=== PATIENT | female | born 1980 | race Caucasian/White ===

== ENCOUNTER → 2017-06-16 08:56 | Outpatient (CLI) | payer BC, OTHER, SELFPAY ==
[2017-06-16 09:52] LABS: Hematocrit 40.2 % (37-47); Hemoglobin 13.6 g/dl (12.0-15.0); Mean Corp Hgb Conc 33.8 g/gl (32-36); Mean Corpuscular Hgb 29.4 pg (27.0-32.0); Mean Platelet Vol. 9.8 fl (6.2-12.0); Platelet Count 284 K/mm3 (150-450); RBC Distribution Width CV 13.6 % (11.6-14.6); RBC Distribution Width SD 42.7 fl (35.1-43.9); Red Blood Count 4.62 M/mm3 (4.2-5.4); Scan Indicated on CBC? Y/N NO; White Blood Count 7.1 K/mm3 (4.4-11.0)
[2017-06-16 10:12] LABS: Estradiol 98.2 pg/mL; Follicle Stimulating Hormone 5.7 mIU/mL; Free T3 2.8 pg/mL (2.18-3.98); T4 Free Direct 1.52 ng/dL (0.76-1.46); Thyroid Stim Hormone (TSH) 2.35 uIU/mL (0.358-3.74)
[2017-06-17 09:14] LABS: DHEA Sulfate 5.3 ug/dL (84.8-378.0)
== END ==
PROVIDERS: Family Provider Nurse Practitioner; PCP Nurse Practitioner; Visit Provider Obstetrics & Gynecology
DX: R10.2 Pelvic and perineal pain (principal)
CPT/HCPCS: 36415; 82627; 82670; 83001; 83002; 84144; 84403; 84439; 84443; 84481; 85027; 82626

== ENCOUNTER → 2017-06-21 12:20 | Outpatient (CLI) | payer BC, SELFPAY ==
--- NOTE | 2017-06-21 12:33 | US_ITS ---
STUDY: ULTRASOUND OF THE FEMALE PELVIS - COMPLETE REASON FOR EXAM: Female, 36 years old. Pelvic pain. LMP: Patient is nursing. TECHNIQUE: Transabdominal and Transvaginal TECHNICAL QUALITY: Adequate. COMPARISON: None. FINDINGS: The uterus is anteverted and is in a midline position. The uterus measures 7.7 cm x 4.3 cm x 3.7 cm. Normal uterine cervix. The endometrium measures 9.0 mm in thickness, and is fluid distended. 2 tiny calcifications are seen along the posterior aspect of the endometrium. There is no demonstrated endometrial mass. There is no demonstrated myometrial mass. I.U.D. - The patient does not have an I.U.D. The right ovary is visualized. The right ovary measures 4.4 cm x 2.9 cm x 2.7 cm. Multiple small follicles are seen within it. There is no visualized right adnexal mass or complex lesion. There is normal arterial and normal venous vascularity. The left ovary is visualized. The left ovary measures 2.9 cm x 2.0 cm x 1.9 cm. There is no left ovarian cyst or ovarian mass. There is no visualized left adnexal mass or complex lesion. There is normal arterial and normal venous vascularity. There is no fluid in the cul-de-sac. The pre void volume of the bladder was 174 ml. Polycystic ovary disease: No. US/Pelvic (Non ) IMPRESSION: Fluid distended endometrium. 2 tiny calcifications are seen along its posterior border. Electronically Signed: Kevin Little MD at 15:48 EDT Tel [phone], Service support ,
--- NOTE | 2017-06-21 12:34 | US_ITS ---
STUDY: ULTRASOUND OF THE FEMALE PELVIS - COMPLETE REASON FOR EXAM: Female, 36 years old. Pelvic pain. LMP: Patient is nursing. TECHNIQUE: Transabdominal and Transvaginal TECHNICAL QUALITY: Adequate. COMPARISON: None. FINDINGS: The uterus is anteverted and is in a midline position. The uterus measures 7.7 cm x 4.3 cm x 3.7 cm. Normal uterine cervix. The endometrium measures 9.0 mm in thickness, and is fluid distended. 2 tiny calcifications are seen along the posterior aspect of the endometrium. There is no demonstrated endometrial mass. There is no demonstrated myometrial mass. I.U.D. - The patient does not have an I.U.D. The right ovary is visualized. The right ovary measures 4.4 cm x 2.9 cm x 2.7 cm. Multiple small follicles are seen within it. There is no visualized right adnexal mass or complex lesion. There is normal arterial and normal venous vascularity. The left ovary is visualized. The left ovary measures 2.9 cm x 2.0 cm x 1.9 cm. There is no left ovarian cyst or ovarian mass. There is no visualized left adnexal mass or complex lesion. There is normal arterial and normal venous vascularity. There is no fluid in the cul-de-sac. The pre void volume of the bladder was 174 ml. Polycystic ovary disease: No. US/Transvaginal Non- IMPRESSION: Fluid distended endometrium. 2 tiny calcifications are seen along its posterior border. Electronically Signed: Kevin Little MD at 15:48 EDT Tel [phone], Service support ,
== END ==
PROVIDERS: Family Provider Family Medicine; PCP Family Medicine; Visit Provider Obstetrics & Gynecology
DX: R10.2 Pelvic and perineal pain (principal)
CPT/HCPCS: 76830; 76856; 93976

== ENCOUNTER 2017-07-19 06:06 | Observation (INO) | payer BC, SELFPAY ==
[2017-07-19] VITALS (12 sets, daily range): BP systolic 88–116; BP diastolic 45–80; PULSE 83–116; RESP 15–20; TEMP 36.4–37.7; O2SAT 95–100; BMI 35.6; BMI 35.7; BMI 35.8
--- NOTE | 2017-07-19 06:12 | EKG12_ITS ---
Test Reason : ABNL Blood Pressure : / mmHG Vent. Rate : 103 BPM Atrial Rate : 103 BPM P-R Int : 118 ms QRS Dur : 092 ms QT Int : 350 ms P-R-T Axes : -04 031 008 degrees QTc Int : 458 ms Sinus tachycardia Otherwise normal ECG Confirmed by HAY ROBERTSON, JADE ([id number]), editor news AMINATA SHEN ([id number]) on 07/22/2017 3:20:12 PM Referred By: HARRIS Confirmed By:JADE GUIDO MD
[2017-07-19] MEDS: Hydrocortisone Sod Succinate 100 MG/2 ML Vial 200 MG IV (06:34)
[2017-07-19] MEDS: 0.9% Normal Saline 1,000 ML 1000 ML IV (06:35)
[2017-07-19] MEDS: Ondansetron 4 MG/2 ML Vial IV (06:35)
[2017-07-19] MEDS: 0.9% Normal Saline 1,000 ML 999 ML IV ×2 (06:45→19:00)
--- NOTE | 2017-07-19 06:52 | ED.DCSUM_ITS ---
- ER Visit Summary Date of Service: 07/19/17 Chief Complaint: Nausea, vomiting, diarrhea History of Present Illness: The patient is a 36 F resents to the emergency department with nausea, vomiting, diarrhea. The patient has a history of congenital adrenal hyperplasia. She is on daily prednisone. She follows with endocrine at [facility] in [facility]. She does have a history of acute adrenal crisis when she had C. difficile in March. She states that this morning, she woke with some cramping abdominal pain. She states that she had loose watery diarrhea. She states it smelled like her C. difficile. She then began to vomit. She was unable to keep her prednisone down. She began to feel increasingly weak and lightheaded. She states this is exactly how her symptoms started before when she was in adrenal insufficiency and addisonian crisis. She has not been on any recent antibiotics. She denies any fever. She denies any recent travel. Physical Examination: Vital signs reviewed General: Well-nourished, well-developed Head: Normocephalic, atraumatic Eyes: Pupils equal and reactive, extraocular muscles intact Neck, supple, no lymphadenopathy Heart: Regular rate and rhythm Respiratory: No distress, clear bilaterally Abdomen: Soft, nontender, nondistended, no peritoneal signs Back: Nontender Extremities: Nontender, no edema, no cords Skin: Normal color no rash Neuro: Alert and oriented, no focal or lateralizing deficits Test Results: [] Emergency Department Course and Treatment: The patient is a history of acute adrenal insufficiency. IV was established. She was given fluids and Cortef. Labs were obtained. The patient will be reevaluated pending completion of workup and final disposition will be made. Treatment Plan: [] Disposition: [] Impression: [] This note was generated with [employer] dictation software. It may contain incorrect words, spelling, and punctuation that were not noted in review of the chart prior to signing ED Disposition - Plan for ED Patient: Chief Complaint: Nausea/Vomiting/Diarrhea Referrals: Mercedes Arreola MD [Primary Care Provider] -
[2017-07-19 06:57] LABS: Absolute Neutrophil Count 9.8 X10^3/uL (2.0-7.7); Basophil# 0.01 X10^3/uL; Basophil% 0.1 % (0-1); Eosinophil# 0.06 X10^3/uL; Eosinophils% 0.5 % (0-5); Hematocrit 42.8 % (37-47); Hemoglobin 14.2 g/dl (12.0-15.0); Lymphocyte % 7.8 % (19-41); Mean Corp Hgb Conc 33.2 g/gl (32-36); Mean Corpuscular Hgb 28.7 pg (27.0-32.0); Mean Corpuscular Volume 86.6 fL (81-99); Mean Platelet Vol. 9.6 fl (6.2-12.0); Monocyte# 0.82 X10^3/uL; Monocyte% 7.1 % (0-10); Neutrophil # 9.75 X10^3/uL (2.7-7.7); Neutrophil % 84.3 % (47-70); Platelet Count 231 K/mm3 (150-450); RBC Distribution Width CV 13.4 % (11.6-14.6); RBC Distribution Width SD 42.5 fl (35.1-43.9); Red Blood Count 4.94 M/mm3 (4.2-5.4); White Blood Count 11.6 K/mm3 (4.4-11.0)
[2017-07-19 06:58] LABS: POSITIVE COUNT NO; POSITIVE DIFFERENTIAL NO; POSITIVE MORPHOLOGY NO
[2017-07-19 07:24] LABS: AST(SGOT) 11 U/L (15-37); Alanine Aminotransfer ALT/SGPT 20 U/L (13-56); Albumin, Serum 3.7 g/dL (3.2-5.0); Alkaline Phosphatase 90 U/L (45-117); Anion Gap 10 (5-15); BUN 22 mg/dL (7-18); BUN/Creat Ratio 21.6 RATIO (10-20); Chloride 104 mmol/L (98-107); Creatinine, Serum 1.02 mg/dL (0.55-1.02); EST Glomerular Filtration Rate 66 mL/min (>60); Est Glom Filt Rate - Afr Amer 80 mL/min (>60); Estimated Creatinine Clearance 58.64 ml/min; Globulin 3.7 g/dL (2.2-4.2); Glucose 105 mg/dL (74-106); Potassium 4.2 mmol/L (3.5-5.1); Protein, Total 7.4 g/dL (6.4-8.2); Sodium Level 139 mmol/L (136-145)
[2017-07-19 07:32] LABS: Lactic Acid 2.2 mmol/L (0.4-2.0)
[2017-07-19] MEDS: proMETHazine 25 MG/ML Syringe 12.5 MG IV (08:17)
[2017-07-19 10:38] LABS: Mucous, Urine 0 SEEN /hpf (<or=2+); Red Blood Cells-Urine 0 SEEN /hpf (0-5); White Blood Cells 0 SEEN /hpf (0-5)
[2017-07-19 10:41] LABS: Color, Urine Yellow (Yellow); Glucose, Dipstick Normal (Normal); Ketone-Dipstick 50 mg/dl (Negative); Leukocyte Esterase-Dipstick Negative /ul (Negative); Nitrite-Dipstick Negative (Negative); Occult Blood-Urine Negative /ul (Negative); Protein-Dipstick Negative (Negative); Urine Bilirubin Dipstick Negative (Negative); Urine Clarity Sl. Cloudy (Clear); Urine Urobilinogen Normal (Normal)
[2017-07-19 10:49] LABS: Bacteria 1+ /hpf (None Seen); Squamous Epithelial Cells - UA 0-5 SEEN /hpf (5-10)
[2017-07-19 10:52] LABS: Reflex Lactate? Y
[2017-07-19 11:00] LABS: CORTISOL SERUM > 150.00 ug/dL (3.09-22.40)
[2017-07-19] MEDS: 0.9% Normal Saline 1,000 ML 150 ML IV ×2 (12:00→17:00)
--- NOTE | 2017-07-19 12:41 | PCM.HP.STD ---
Problem List (1) Adrenal insufficiency Status: Acute History of Present Illness Date of Admission: 07/19/17 Chief Complaint: Nausea vomiting and diarrhea. The patient is a 36 year old F history of congenital arenal insufficiency on daily prednisone, who presented to the emergency room due to nausea vomiting and diarrhea. She also reports generalized weakness, dizziness and abdominal discomfort. He had a history of C. difficile associated diarrhea in March of this year and had adrenal crisis at the time she feels that his symptoms are similar to when she had adrenal crisis. She reports that 2 children in her home has viral upper respiratory infections but no one reports nausea, vomiting or diarrhea . She reports no fever or chills. The emergency room he was hemodynamically stable, her C. difficile studies was negative and her random cortisol level was more 150. The patient was however given a dose of IV hydrocortisone in the emergency room, but on IV fluids and anti-emetics and admitted to the hospital. When I saw her she was alert and oriented to time place and person , she does not appear toxic. Past Medical History Allergies No Known Allergies Allergy (Verified 01/03/14 09:32) Home Medications: Ambulatory Orders Medication Instructions Recorded Calcium Carb/Vitamin D 1 tab PO DAILY@0800 01/03/14 [Caltrate-600 With Vit D Tab] Levothyroxine [Synthroid] 75 mcg PO DAILY 01/03/14 Vits [Prenatabs FA ] 1 tablet PO QHS 01/03/14 predniSONE tablet 10 mg PO QHS 01/03/14 Norethindrone [Paris] 0.35 mg PO DAILY 07/19/17 buPROPion XL [Wellbutrin Xl] 150 mg PO BID 07/19/17 Smoking Status: Never smoker Review of Systems Comment: All Systems were reviewed with pertinent positives mentioned in the HPI above. VTE Information - Inpt Only VTE Present on Admission: No VTE Mechan Device Prophylaxis: SCD's VTE Pharm Prophylaxis ordered?: Yes Patient Problems: Active and Suspected Problems Adrenal insufficiency (Acute) - Physical Exam General: Alert, Oriented x3 HEENT: Atraumatic Oral: Moist Mucosa Neck: Supple Lungs: Clear to auscultation Cardiovascular: Regular rate, Normal S1, Normal S2 Abdomen: Bowel Sounds Present, Soft, Non Tender, Non-Distended Extremities: No clubbing, No edema Lymphatic: No Cervical, Supraclavicular, or Inguinal Adenopathy Neurological: Cranial nerves II-XII grossly intact, Motor Exam 5/5 strength throughout Psych/Mental Status: Normal Affect, Alert and oriented to time, place, person, mood and affect Vital Signs Temp Pulse Resp BP Pulse Ox 99.8 F H 110 H 16 101/61 100 07/19/17 11:11 07/19/17 11:11 07/19/17 11:11 07/19/17 11:11 07/19/17 11:11 Oxygen Delivery Method Room Air Weight: 85.9 kg Body Mass Index (BMI) 35.7 Laboratory Tests Past 24 Hrs 07/19/17 11:55 Lactic Acid Pending Assessment/Plan Active and Suspected Problems Adrenal insufficiency (Acute) 1. Gastroenteritis; likely viral, we will however send stool for cultures and fecal leukocytes. 2. Hydration secondary to #1; IV hydration. 3. History of adrenal insufficiency; she is on daily prednisone, random cortisol level is more than 150 and the patient also received a dose of hydrocortisone in the emergency room. Resume her oral prednisone tomorrow. 4. Hypothyroidism; she is on Synthroid, will check a TSH. 5. Early ambulation for DVT prophylaxis. Code Visit OBSV E&M: 83504 Initial observation care L3
[2017-07-19 12:46] LABS: Lactic Acid 0.7 mmol/L (0.4-2.0)
[2017-07-19 13:00] LABS: Thyroid Stim Hormone (TSH) 2.65 uIU/mL (0.358-3.74)
[2017-07-19] MEDS: Hydrocortisone Sod Succinate 100 MG/2 ML Vial 50 MG IV (19:48)
[2017-07-19] MEDS: buPROPion (XL) 150 MG TABLET.XL PO (21:02)
[2017-07-19] MEDS: Prenatal Vits Tablet 1 TABLET PO (21:02)
[2017-07-20] MEDS: 0.9% Normal Saline 1,000 ML 150 ML IV (02:32)
[2017-07-20 02:34] VITALS: BP 99/60; PULSE 85; RESP 18; TEMP 36.6; O2SAT 99
[2017-07-20 04:04] VITALS: PULSE 74
[2017-07-20] MEDS: Levothyroxine 75 MCG Tablet PO (05:26)
[2017-07-20 05:59] LABS: Absolute Lymphocyte Count 1.03 X10^3/ul (0.83-4.51); Absolute Neutrophil Count 3.8 X10^3/uL (2.0-7.7); Eosinophil# 0.01 X10^3/uL; Eosinophils% 0.2 % (0-5); Hematocrit 33.6 % (37-47); Hemoglobin 10.8 g/dl (12.0-15.0); Lymphocyte # 1.03 X10^3/ul (4.0); Lymphocyte % 19.8 % (19-41); Mean Corp Hgb Conc 32.1 g/gl (32-36); Mean Corpuscular Hgb 28.7 pg (27.0-32.0); Mean Corpuscular Volume 89.4 fL (81-99); Mean Platelet Vol. 9.4 fl (6.2-12.0); Monocyte# 0.35 X10^3/uL; Monocyte% 6.7 % (0-10); Neutrophil # 3.82 X10^3/uL (2.7-7.7); Neutrophil % 73.3 % (47-70); Platelet Count 203 K/mm3 (150-450); RBC Distribution Width CV 13.5 % (11.6-14.6); RBC Distribution Width SD 43.1 fl (35.1-43.9); Red Blood Count 3.76 M/mm3 (4.2-5.4); White Blood Count 5.2 K/mm3 (4.4-11.0)
[2017-07-20 06:09] LABS: POSITIVE COUNT NO; POSITIVE DIFFERENTIAL NO; POSITIVE MORPHOLOGY NO
[2017-07-20 06:33] LABS: Anion Gap 7 (5-15); BUN 9 mg/dL (7-18); Calcium,Total 7.1 mg/dL (8.5-10.1); Chloride 116 mmol/L (98-107); Creatinine, Serum 0.64 mg/dL (0.55-1.02); EST Glomerular Filtration Rate 112 mL/min (>60); Est Glom Filt Rate - Afr Amer 136 mL/min (>60); Estimated Creatinine Clearance 93.46 ml/min; Glucose 116 mg/dL (74-106); Potassium 3.8 mmol/L (3.5-5.1); Sodium Level 143 mmol/L (136-145)
[2017-07-20 08:30] VITALS: BP 99/70; PULSE 65; RESP 18; TEMP 36.6; O2SAT 99
[2017-07-20] MEDS: Hydrocortisone Sod Succinate 100 MG/2 ML Vial 50 MG IV (09:10)
[2017-07-20] MEDS: buPROPion (XL) 150 MG TABLET.XL PO (09:11)
--- NOTE | 2017-07-20 10:00 | PCM.DC ---
- Discharge Diagnoses Current Active Problems: Current Active and Chronic Problems Adrenal insufficiency (Acute) You will use the following diet at home:: Regular Discharge Activity: Return to Normal Activity Allergies/Adverse Reactions: Allergies No Known Allergies Allergy (Verified 01/03/14 09:32) Medications to take at Discharge Calcium Carb/Vitamin D [Caltrate-600 With Vit D Tab] 1 tab PO DAILY@0800 01/03/14 Levothyroxine [Synthroid] 75 mcg PO DAILY 01/03/14 Vits [Prenatabs FA ] 1 tablet PO QHS 01/03/14 predniSONE tablet 10 mg PO QHS 01/03/14 Norethindrone [Paris] 0.35 mg PO DAILY 07/19/17 buPROPion XL [Wellbutrin Xl] 150 mg PO BID 07/19/17 Primary Care Physician: Mercedes Arreola MD [Primary Care Provider] - Within 2 Weeks Proposed Discharge Date: 07/20/17
--- NOTE | 2017-07-20 10:02 | PCM.DC.SUM ---
Discharge Date and Diagnosis Date of Admission: 07/19/17 Date of Discharge: 07/20/17 - Primary Discharge Diagnosis Active and Suspected Problems Adrenal insufficiency (Acute) Hospital Course and Treatment Summary of Care Provided: The patient is a 36 year old F history of congenital arenal insufficiency on daily prednisone, who presented to the emergency room due to nausea vomiting and diarrhea. She also reports generalized weakness, dizziness and abdominal discomfort. He had a history of C. difficile associated diarrhea in March of this year and had adrenal crisis at the time she feels that his symptoms are similar to when she had adrenal crisis. She reports that 2 children in her home has viral upper respiratory infections but no one reports nausea, vomiting or diarrhea . She reports no fever or chills. The emergency room he was hemodynamically stable, her C. difficile studies was negative and her random cortisol level was more 150. The patient was however given a dose of IV hydrocortisone in the emergency room, she was placed on IV fluids and anti-emetics and admitted to the hospital. The patient continued to do well and was discharged home the next day in a stable condition. Discharge Activity: Return to Normal Activity Home Medications: Medications to take at Discharge Calcium Carb/Vitamin D [Caltrate-600 With Vit D Tab] 1 tab PO DAILY@0800 01/03/14 Levothyroxine [Synthroid] 75 mcg PO DAILY 01/03/14 Vits [Prenatabs FA ] 1 tablet PO QHS 01/03/14 predniSONE tablet 10 mg PO QHS 01/03/14 Norethindrone [Paris] 0.35 mg PO DAILY 07/19/17 buPROPion XL [Wellbutrin Xl] 150 mg PO BID 07/19/17 Primary Care Physician: Mercedes Arreola MD [Primary Care Provider] - Within 2 Weeks Medical Necessity - Tobacco Use Smoking Status: Never smoker Meaningful Use Info Meaningful Use Diagnoses (Choose all that apply): None applicable Code Visit Inpatient E&M: 56638 Disch Hosp
== END 2017-07-20 11:08 | disposition home or self-care (01) ==
LOC: ED 06:16 → MS3 10:58
PROVIDERS: Admitting Provider Internal Medicine; Emergency Provider Emergency Medicine; Family Provider Family Medicine; PCP Family Medicine; Visit Provider Internal Medicine
DX: R11.2 Nausea with vomiting, unspecified (principal); R19.7 Diarrhea, unspecified; R42 Dizziness and giddiness; R53.1 Weakness; E27.40 Unspecified adrenocortical insufficiency; Z79.52 Long term (current) use of systemic steroids; E25.0 Congenital adrenogenital disorders associated with enzyme deficiency; Z79.899 Other long term (current) drug therapy; E03.9 Hypothyroidism, unspecified
CPT/HCPCS: 36415; 80048; 80053; 81001; 82533; 83605; 84443; 85025; 87040; 87493; 93005; 96361; 96374; 96375; 96376; 97802; 99218; 99285; J7030; A4216; G0378; J2405

== ENCOUNTER → 2017-08-02 08:21 | Outpatient (CLI) | payer BC, SELFPAY ==
--- NOTE | 2017-08-02 08:24 | BD_ITS ---
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 TECHNIQUE: Bone Mineral Density (BMD) measurements of lumbar spine and bilateral hips were obtained. COMPARISON: Comparison is made with prior study dated May 15, 2013. FINDINGS: Lumbar Spine (L1-L4): g/cm2 (1.013) / T-score (-1.4) / Z-score (-1.4) Findings are suggestive of osteopenia with a moderate fracture risk. Left Femur Total: g/cm2 (0.793) / T-score (-1.7) / Z-score (-1.6) Left Femoral Neck: g/cm2 (0.788) / T-score (-1.8) / Z-score (-1.5) Right Femur Total: g/cm2 (0.838) / T-score (-1.3) / Z-score (-1.2) Right Femoral Neck: g/cm2 (0.810) / T-score (-1.6) / Z-score (-1.4) The T-Scores on the most recent prior examination were: Lumbar Spine (L1-L4): There has been worsening of bone density since the previous examination. Left Femur Total: which represents a worsening of 11.9%. Right Femur Total: which represents a worsening of 4.0%. BD/Dexa Bone Density Study IMPRESSION: The patient is considered osteopenic as outlined below according to World [employer] Organization (WHO) criteria with a moderate fracture risk. There has been worsening of bone density since the previous examination. Reference Information: The T-score is the number of standard deviations above or below the standard which is normal for young adults at their peak bone mineral density. The World Health Organization (WHO) interprets the T-scores as follows: Above -1 Normal bone density Between -1 and -2.5 Osteopenia Equal to / or below -2.5 Osteoporosis As a practical clinical guideline, osteopenia may be graded as follows: Mild -1 through -1.5 Moderate -1.6 through -2.0 Severe -2.1 through -2.4 The Z-score is the number of standard deviations above or below age-matched controls. A Z-score of less than -1.5 would be considered abnormal. References: 1. NIH Osteoporosis and Related Bone Diseases http://www.osteo.org 2. International Society for Clinical Densitometry http://www.iscd.org 3. National Osteoporosis Foundation http://www.nof.org Electronically Signed: Kevin Little MD at 9:54 EDT Tel [phone], Service support ,
== END ==
PROVIDERS: Family Provider Family Medicine; PCP Family Medicine; Visit Provider Internal Medicine Endocrinology, Diabetes & Metabolism
DX: M85.80 Other specified disorders of bone density and structure, unspecified site (principal)
CPT/HCPCS: 77080

== ENCOUNTER 2017-10-10 12:00 | Outpatient (RCR) | payer BC, SELFPAY ==
--- NOTE | 2017-09-09 07:20 | HP.PTEVAL ---
Patient's Visit Information GOLDEN SAMPSON is a 36 year old F referred to Physical Therapy by Mercedes Arreola MD with a diagnosis of DISORDER AND TENDON/BURSEA RIGHT SHOULDER,LESION SHOULDER. Date of Evaluation: 09/08/17 Physical Therapist: Igor Nelson PT, - Visit Plan Frequency: 2x /Week Duration: 4 Weeks Plan: STRENGTHENING EX'S RTC/SCAPULAR ,POSTURAL EX'S,OPEN/CLOSED CHAIN ACTIVITIES - Subjective Subjective: This 36 y/o female presemts to physical therapy with right shoulder pain for about 6weeks. Patient noticed pain in in right shoulder pain when falling asleep with son. Symptoms worse with unable to throw ball ,reaching behind back to unhook bra,pushing with right arm,moviong arm to side abduction with job demands. Patient reports pain at ER with shoulder flexion. Pain affects ADL'S and job demands/housework tasks.C/O tingling to elbow.Patient decresribes as ache and ocassioanal sharp pain. Pain affects sleeping.Pain right lateral deltoid,ocassional scapular. Patient has h/o scapular and shoulder pain x10 years. SOCAIL: . 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 NEURO: denies parathesia/tingling ,reflexes C5-6- 7,MYTOMES intact. PALAPTION: tender middle traps/levator. AROM: flexion bilateral shoulder flexion/abduction 170 degrees,ER greater 90 degrees,ER 85 degrees OP with pain. MMT: RTC 4/5 except supraspinatous 4-/5,deltoid 4-/5,poor scapular middle/lower traps,serratous 3+/5 ,bicep/tricep 4/5. CERVICAL ROM: WFL all planes with OP no pain - Special Tests C/S Radiculapathy - Left Upper limb tension test: Negative C/S Radiculapathy - Right Upper limb tension test: Negative C/S Radiculapathy - Left Spurlings: Negative C/S Radiculapathy - Right Spurlings: Negative C/S Radiculapathy - Left Cervical distraction: Negative C/S Radiculapathy - Right Cervical distraction: Negative C/S Radiculapathy - Right Relief test: Negative Sharp Landen: Negative Vertebral Artery Test: Negative Alar Ligament Test: Negative - Goals Goal 1:: Independant with HEP. Goal Time Frame: 4-6 Weeks Goal 2:: Decrease pain by 70% right shoulder with functional activities /job demands and housework tasks . Goal Time Frame: 4-6 Weeks Goal 3:: Patient to increase strength sacpular stablizers to 3+/5 to improve function with ADL'S Goal Time Frame: 4-6 Weeks Goal 4:: Patient be able to improve ADL'S housework tasks/job demnads with min limitations Goal Time Frame: 4-6 Weeks Goal 5:: Patient to improve posture for ADL'S for shoulder pain. Goal Time Frame: 4-6 Weeks - Rehabilitation Potential Physical Therapy Diagnosis: This patient has right shoulder pain with secondary impingement with shoulder with weakness right scapular ,posture and pain with ADL'S ,job demands/housework tasks. Rehabilitation Potential: Good - Anticipated Interventions Patient/Client Instruction: Educate patient on: Condition, Plan of Care For the Purpose of:: To decrease pain, To increase ROM, To improve muscle performance and motor function, To improve ability to perform ADL's, To increase tolerance to activity/condition/position, To improve performance and independence with ADL's, To improve ability of physical actions for home/community/work/leisure, To assume or resume ADL's, To reduce risk of recurrence, To improve ability to perform tasks related to life management Therapeutic Exercise to Include: Strength training, Postural training, Scapular Strength/Stabilization Comment: RTC For the Purpose of:: To decrease pain, To improve muscle performance and motor function, To improve ability to perform ADL's, To increase tolerance to activity/condition/position, To improve ability of physical actions for home/community/work/leisure, To improve ability to perform tasks related to life management IF ES: Yes Cryotherapy (ice pack, ice massage): Yes Thermo therapy (hot pack): Yes Ultrasound (thermal/non thermal): Yes For the Purpose of:: To decrease pain, To increase ROM, To improve nutrient delivery to tissue, To increase oxygenation perfusion Thank you for the opportunity to evaluate your patient. For Medicare and Medicare HMO plans, please review the plan of care and approve it. It will need to be FAXED BACK to us at [phone] for Medicare purposes. Please let me know if there are questions or concerns regarding this plan of care. Physician Signature: Date:
--- NOTE | 2017-12-13 07:35 | HP.PT.NRP ---
HP - Discharge Summary (1) - Patient Information GOLDEN SAMPSON was seen in my office for initial evaluation on 09/08/17. The following Plan of Care was established for this patient: Initial Frequency: 2x /Week Initial Duration: 4 Weeks - Anticipated Interventions Patient/Client Instruction: Educate patient on: Condition, Plan of Care For the Purpose of:: To decrease pain, To increase ROM, To improve muscle performance and motor function, To improve ability to perform ADL's, To increase tolerance to activity/condition/position, To improve performance and independence with ADL's, To improve ability of physical actions for home/community/work/leisure, To assume or resume ADL's, To reduce risk of recurrence, To improve ability to perform tasks related to life management Therapeutic Exercise to Include: Strength training, Postural training, Scapular Strength/Stabilization For the Purpose of:: To decrease pain, To improve muscle performance and motor function, To improve ability to perform ADL's, To increase tolerance to activity/condition/position, To improve ability of physical actions for home/community/work/leisure, To improve ability to perform tasks related to life management IF ES: Yes Cryotherapy (ice pack, ice massage): Yes Thermo therapy (hot pack): Yes Ultrasound (thermal/non thermal): Yes For the Purpose of:: To decrease pain, To increase ROM, To improve nutrient delivery to tissue, To increase oxygenation perfusion This patient was last seen in our office 10/10/17. Pertinent comments regarding their Physical therapy will appear below: Patient seen for PT for right shooulder pain focusing on RTC,postural ex's,ROM and modalitues as needed .Patient progressed well with increasing strength and ROM for function. At this point I will be discontinuing this patient from physical therapy. I would be happy to see this patient again in the future if found appropriate by the physician. Thank you! Igor Nelson, PT,
== END 2017-10-10 19:00 | disposition home or self-care (01) ==
LOC: PT 12:00
PROVIDERS: Family Provider Family Medicine; PCP Family Medicine; Visit Provider Family Medicine
DX: M75.81 Other shoulder lesions, right shoulder (principal)
CPT/HCPCS: 97014; 97110; 97162; G0283

== ENCOUNTER → 2017-12-15 13:17 | Outpatient (CLI) | payer BC, SELFPAY ==
[2017-12-15 14:08] LABS: Color, Urine Yellow (Yellow); Glucose, Dipstick Normal (Normal); Ketone-Dipstick 5 mg/dl (Negative); Leukocyte Esterase-Dipstick 25 /ul (Negative); Nitrite-Dipstick Negative (Negative); Occult Blood-Urine Negative /ul (Negative); Protein-Dipstick Negative (Negative); Specific Gravity, Urine 1.015 (1.002-1.030); Urine Bilirubin Dipstick Negative (Negative); Urine Clarity Clear (Clear); Urine Urobilinogen Normal (Normal)
[2017-12-15 14:50] LABS: Anion Gap 7 (5-15); BUN 16 mg/dL (7-18); BUN/Creat Ratio 14.2 RATIO (10-20); Calcium,Total 8.8 mg/dL (8.5-10.1); Chloride 104 mmol/L (98-107); Creatinine, Serum 1.13 mg/dL (0.55-1.02); EST Glomerular Filtration Rate 58 mL/min (>60); Est Glom Filt Rate - Afr Amer 71 mL/min (>60); Glucose 120 mg/dL (74-106); Potassium 3.7 mmol/L (3.5-5.1); Sodium Level 136 mmol/L (136-145)
== END ==
PROVIDERS: Family Provider Family Medicine; PCP Family Medicine; Visit Provider Family Medicine
DX: E25.9 Adrenogenital disorder, unspecified (principal); R35.0 Frequency of micturition
CPT/HCPCS: 36415; 80048; 81002

== ENCOUNTER → 2018-03-27 14:04 | Outpatient (CLI) | payer BC, SELFPAY ==
[2017-07-19 11:11] VITALS: BMI 35.7
[2018-03-31 19:48] LABS: HPV APTIMA, High Risk Negative (Negative)
== END ==
PROVIDERS: Visit Provider Obstetrics & Gynecology
DX: Z12.4 Encounter for screening for malignant neoplasm of cervix (principal)
CPT/HCPCS: 87624; 88175; G0145

== ENCOUNTER → 2018-05-22 11:19 | Outpatient (CLI) | payer BC, SELFPAY ==
[2017-07-19 11:11] VITALS: BMI 35.7
[2018-05-22 12:30] LABS: Creatinine, Serum 0.98 mg/dL (0.55-1.02); EST Glomerular Filtration Rate 68 mL/min (>60); Est Glom Filt Rate - Afr Amer 83 mL/min (>60)
[2018-05-22 12:31] LABS: Hematocrit 43.1 % (37-47); Hemoglobin 14.5 g/dl (12.0-15.0); Mean Corp Hgb Conc 33.6 g/gl (32-36); Mean Corpuscular Hgb 30.2 pg (27.0-32.0); Mean Corpuscular Volume 89.8 fL (81-99); Mean Platelet Vol. 9.7 fl (6.2-12.0); Platelet Count 313 K/mm3 (150-450); RBC Distribution Width CV 12.5 % (11.6-14.6); RBC Distribution Width SD 40.5 fl (35.1-43.9); White Blood Count 8.2 K/mm3 (4.4-11.0)
[2018-05-22 12:39] LABS: Scan Indicated on CBC? Y/N NO
== END ==
PROVIDERS: Visit Provider Obstetrics & Gynecology
DX: R10.30 Lower abdominal pain, unspecified (principal)
CPT/HCPCS: 36415; 82565; 85027

== ENCOUNTER 2018-09-20 05:59 | Day surgery (SDC) | payer BC, SELFPAY ==
--- NOTE | 2018-09-18 18:35 | PCM.HPOB.BLA ---
History and Physical Date of Admission: 09/20/18 Name: MABEL DURAN Date of : 1980 HISTORY OF PRESENT ILLNESS: On 09/18/2018, Mabel Duran, a 37 year old female 2 0 0 0 2, presented for: -- PELVIC PAIN and heavy bleeding. Pt here for preop appt. H/O heavy periods she had tried NuvaRing without relief. Called in to triage 09/04/18 12:47 States having bleeding x 10 days and continues to be heavy, but not a PPH, but heavy for me. Requesting Aygestin Taper and was given the RX as requested. Called in again on 09/07/18 with request for D and C, hysteroscopy, and endometrial ablation. History noted of heavy bleeding , failed trial of NuvaRing, and on Aygestin, plans to continue this until after surgery. She has had C/S deliveries and BTO. She had a pelvic ultrasound on 07/25/2018. UTERUS: 8.2 x 5 x 3.6cm. ENDOMETRIAL ECHO: 10mm with calcifications and small cystic structure seen. R OVARY: 3 x 2.4 x 2.7cm. 6 small follicles seen. L OVARY: 3.4 x 2.7 x 2.6cm. 8 small follicles seen. BLADDER: No bladder masses visualized. FREE FLUID: NONE Reviewed sono findings. Pt is aware of the surgical procedure to be performed. Reviewed R,B,A and advised if this fails to alleviate symptoms, may consider hysterectomy and bilateral salpingectomy EB ALLERGIES: NKDA MEDICATIONS HISTORY: Current medications prescribed by our practice are: 1. Aygestin 5 mg tablet, 2 daily 2. Fioricet 50 mg-300 mg-40 mg capsule, two caps at onset of headache then one tab PO q 4 hours prn 3. levothyroxine 75 mcg tablet, 1 daily 4. [place] 10 mg-325 mg tablet, one tab PO q 8 hours prn 5. NuvaRing 0.12 mg -0.015 mg/24 hr vaginal, As Directed insert x 21 days remove and reinsert new ring continuously 6. Wellbutrin XL 150 mg 24 hr tablet, extended release, 1 PO BID 7. Zofran 4 mg tablet, One tablet by mouth every 8 hrs as needed for nausea Patient is also takin. prednisone 10 mg tablet, One tablet by mouth daily 2. Adipex-P 37.5 mg capsule PAST HISTORY: Breast/Ovarian/Colon Cancers - maternal aunt breast ca dx in 's Infections - Chicken pox and pyelo Illnesses - congenital adrenal hyperplasia - dx 1997, salt wasting, Hypothyroidism Accidents - no injuries of consequence History of Abnormal PAPS - YES Hospitalizations - see surgery ASCUS +HPV; SURGICAL HISTORY: 1. 03/19/2014 2. 03/21/1993 T and A 3. 03/21/1998 rt pheloplasty for Rt UPJ obstruction 4. 03/21/1998 Inguinal hernia repair 5. 01/20/2000 Vaginoplasty for sinus 6. 02/19/2000 endopyelotomy w/ stent 7. 04/21/2001 cystoscopy JJ 8. 05/19/2001 laser w/ stent Rt ureter 9. 01/19/2002 lap ureterocaliostomy 10. 07/19/2002 Rt nephrectomy 11. 10/19/2002 Appendectomy 12. 11/19/2005 dx lap w/ lysis of adhesions, Rt hydrosalpinx 13. 01/02/[address] Alexsandra Matias complete blockage d/t hydrosalpinx 14. 11/03/2012 operative laparoscopy Keyana Torres MD 15. 11/03/2012 Right ovarian cystectomy Keyana Torres 16. 05/10/2016 and Tubal MENSTRUAL HISTORY: LMP Known?- Approximate Amount/Duration - prolonged, Regularity - Irregular, Frequency - variable days, Prior Menses - 07/24/2018, LMP - 08/25/18, Age Onset Menarche - 19 PAST PREGNANCIES: Total Pregnancies - 2; Full Term Pregnancies - 2; Premature - 0; Abortions, Induced - 0; Abortions, Spontaneous - 0; Ectopics - 0; Multiple Births - 0; Living Children - 2 FAMILY HISTORY: Mother - FH: Ulcerative colitis; Aunt - Carcinoma of breast; Maternal Grandparent - Heart disorder; Maternal Grandparent - CVA; Maternal Grandparent - FH: Hypertension; Maternal Grandparent - FH: Congestive heart failure; Paternal Grandparent - FH: Diabetes mellitus; Paternal Grandparent - Heart disorder; Paternal Grandparent - CVA; Paternal Grandparent - FH: Hypertension; SOCIAL HISTORY: Alcohol Use - drinks occasionally Smoking - denies smoking Diet - balanced Diet Lifestyle - Exercise - active and walking Seat Belt Use - always Employer - [employer] Job Description - [employer] Illicit Drug Use - denies use of street drugs Sexual Activity - Residence - lives with Place of - [place], [place] Hours Worked - 16 Spouse-Sig Other Name - Suhas Duran Spouse-Sig Other Occupation - Business Process Analyst[employer] Spouse-Sig Other Phone No - [phone] cell Children Name(s) - Denver ('14)Luis 05/10/16 [facility] Control - Tubal PHYSICAL EXAMINATION CONSTITUTIONAL - NAD, well nourished, and well developed HEENT - normocephalic, atraumatic, sclerae anicteric NECK - no nuchal rigidity EXTREMITIES - No edema or calf tenderness NEUROLOGICAL - normal gait, normal balance, normal motor PSYCHIATRIC - A and O to time, place, person, mood and affect ASSESSMENT: 1. Excessive Bleeding In The Premenopausal Period PLAN BY DIAGNOSIS: 1. Excessive Bleeding In The Premenopausal Period Pelvic sono showed no fibroids. Thickened endometrial stripe. Continued heavy bleeding despite trial of NuvaRing, and is on Aygestin for now. Prior BTO. Declines further hormonal contraception at present. prefers to proceed with hysteroscopy, D and C and endometrial ablation R,B,A discussed. reviewed anticipated surgical procedure and postop recovery including activity restrictions. Maximum benefit of ablation by 3 months and if still bleeding heavily after 3 mo, need to consider hysterectomy. Surgery next. All questions answered to patient's satisfaction and consents signed. RTO in 2 wk for postop follow up appt. Congenital Adrenal hyperplasia, chronic steroids. Plan for stress dose SoluCortef 100 mg IV one hour prior to surgery.
--- NOTE | 2018-09-20 | EMB_PTH ---
PATIENT: GOLDEN SAMPSON LOC: [facility] [place] U#:[id number] AGE/SX: 37/F ROOM: RE09/20/[address]: Dr. Chelsie Boyle MD : 1980 BED: DIS: 09/20/2018 SPEC #: [id number] RECD: 09/20/18 11:06 STATUS: IRMA KRISS #: [id number] TOÑA: 09/20/18 00:[address]: Chelsie Boyle DEPT: SURGICAL PATHOLOGY RECD BY: Lang Ibrhaim ENTERED: 09/20/18 14:06 SP TYPE: ENDOM BX/C OT DR: Dr. Mercedes Arreola MD Tissues: Endometrium, NOS Procedures: Surgery Specimen Level IV HEADER OPERATION: Hysteroscopy, Dilation and curettage, Avani PRE-OP DIAGNOSIS: Excessive bleeding premenopausal TISSUE SUBMITTED: Endometrial curettings MICROSCOPIC DIAGNOSIS Endometrium, curettings: Mildly disordered proliferative endometrium. Rare fragments of endocervix with mild chronic inflammation. AM:dhruv 09/22/18 MICROSCOPIC DESCRIPTION Slides are reviewed. GROSS DESCRIPTION Received in fixative is one container labeled with the patient's name and designated endometrial curettings. The specimen consists of multiple fragments of lucero hemorrhagic soft tissue mixed with mucoid tissue that in aggregate measure 2.5 x 2.5 x 0.2 cm. The entire specimen is submitted in one cassette. / SJ:dhruv 09/20/18 TC:5 CPT: 60698
[2018-09-20 06:30] LABS: Internal QC Validated? YES +Cl - CLEAR BKGD; Pregnancy, Urine Negative Negative
[2018-09-20 06:36] VITALS: BP 119/90; PULSE 89; RESP 18; TEMP 36.4; O2SAT 100; BMI 29.7
[2018-09-20] MEDS: Hydrocortisone Sod Succinate 100 MG/2 ML Vial IV (07:00)
[2018-09-20 07:54] VITALS: BP 117/72; BP 119/90; PULSE 82; RESP 16; TEMP 36.4; O2SAT 100
[2018-09-20 08:00] VITALS: BP 114/73; BP 119/90; PULSE 90; RESP 16; O2SAT 100
[2018-09-20 08:05] VITALS: BP 118/69; BP 119/90; PULSE 85; RESP 16; O2SAT 100
--- NOTE | 2018-09-20 08:09 | PCM.DC.D&C ---
Discharge Diet: No Restrictions Discharge Activity: May not drive while taking narcotic pain medications., May Shower, May Take a Tub Bath Return to work on:: 09/22/18 May resume sexual activity in: 1 week Weight Bearing Status: Full weight bearing Call your doctor if you observe: Fever of 101 or Higher, Inability to have a bowel movement, Using more than one pad per hour, Uncontrolled pain Additional Instructions: You may take Two 500 mg tylenol every 6-8 hrs for milder pain. Add OxyIR 1-2 tablets by mouth every 6 hr as needed for more severe pain. OK to take either two Aleve every 8 hrs OR three (200 mg tab) Ibuprofen every 8 hrs in addition to all other medications if needed. Allergies/Adverse Reactions: Allergies No Known Allergies Allergy (Verified 09/14/18 09:17) Medications to take at Discharge Calcium Carb/Vitamin D [Caltrate-600 With Vit D Tab] 1 tab PO DAILY@0800 01/03/14 Levothyroxine [Synthroid] 75 mcg PO DAILY 01/03/14 predniSONE tablet 10 mg PO QHS 01/03/14 buPROPion XL [Wellbutrin Xl] 150 mg PO BID 07/19/17 Famotidine [Pepcid] 40 mg PO DAILY PRN 09/14/18 Multivitamin with Minerals [Multiple Vitamin] 1 ea PO DAILY 09/14/18 Oxycodone [Oxyir] 5 - 10 mg PO Q6H PRN PRN 1 Days #5 tab 09/20/18 The following prescriptions were given: Oxycodone [Oxyir] 5 - 10 mg PO Q6H PRN PRN 1 Days #5 tab PRN Reason: Mod-Severe Pain (-12/28) Transmission Status: Sent to [facility] Primary Care Physician: Mercedes Arreola MD [Primary Care Provider] - Test Results: Test results from this visit will be discussed in further detail at your follow-up appointment, if applicable. Please Follow Up With: Chelsie Boyle MD - [phone] When: in 1-2 wk for postop appt Proposed Discharge Date: 09/20/18
[2018-09-20 08:10] VITALS: BP 119/77; BP 119/90; PULSE 88; RESP 16; TEMP 36.2; O2SAT 100
[2018-09-20 08:39] VITALS: BP 119/90
--- NOTE | 2018-09-20 13:34 | OP.PCM_ITS ---
Report of Operation Date of Procedure: 09/20/18 Pre-Operative Diagnosis: menorrhagia, excessive bleeding in premenopause. Prior BTO. Failed trial of hormonal contraception Post-Operative Diagnosis: same Surgery/Procedure Performed:: Hysteroscopy, D and C, Avani endometrial ablation. Description of Surgical Findings:: Normal appearing uterine cavity, no polyp, and no submucous fibroids. Uterus sounds to 8-9 cm Endometrial canal 4.5 cm. Right tubal ostium seen. L tubal ostium not seen. Type of Anesthesia:: Local MAC Anesthesiologist: Bindu Fonseca CRNA Special Medications: 10 cc of 1% lidocaine as paracervical block. See anesthesia record. Specimen's removed: uterine curettings (scant tissue noted) Drains: Oscar cook prior to case Estimated Blood Loss (mL): 20 Fluids Replaced: LR Description of Procedure: Narrative account After the R,B,Alternatives of the procedure were reviewed with the patient , informed consent was obtained. The patient was taken to the operating room with an IV running and placed in dorsal supine position on the operating table. She was given MAC IV sedation, and repositioned to the dorsal lithotomy position and prepped and draped in the usual sterile fashion. A graves speculum was jose whit into the vagina and the cervix was brought into view. The cervix was nonparous appearing. a 10 cc paracervical block of 1% lidocaine without epinephrine was instilled. A single toothed tenaculum was applied to the anterior lip of the cervix. The cervix was then sequentially dilated to allow admission of the hysteroscope into the endometrial cavity. The hysteroscopy was performed with findings noted as above. Photos were taken showing the R tubal ostium and the atrophic appearing endometrium. A sharp curettage was performed and scant tissue was withdrawn and set aside for later pathology review. Upon completion of the D and C, the Avani endometrial ablation device was placed into the uterus to the fundus, the endometrial canal length was 4.5 cm. The balloon seal at the cervix was inflated and the CO2 test was passed. The Avani endometrial ablation cycle was then completed, and the device was withdrawn. Excellent hemostasis was noted. The single toothed tenaculum was removed from the cervix and a RayTec was used to remove any remaining tissue and blood from the upper vagina and cervix. The procedure was terminated. The speculum was removed. The patient was returned to dorsal supine position and awakened from IV sedation, and transferred to the recovery room bed in stable condition after tolerating the procedure well. Sponge, lap, needle and instrument counts were correct x two. For medications given intraoperatively in addition to the 1% lidocaine for paracervical block, please see the anesthesia record.
== END 2018-09-20 09:06 | disposition home or self-care (01) ==
LOC: SDC 06:00 → AC 06:01
PROVIDERS: Family Provider Family Medicine; PCP Family Medicine; Referring Provider Obstetrics & Gynecology; Visit Provider Obstetrics & Gynecology
PROC: 0UDB8ZZ Extraction of Endometrium, Via Natural or Artificial Opening Endoscopic (ICD-10-PCS; CPT 58558; principal; 2018-09-20 07:20)
DX: N72 Inflammatory disease of cervix uteri (principal); E03.9 Hypothyroidism, unspecified; K21.9 Gastro-esophageal reflux disease without esophagitis; F41.9 Anxiety disorder, unspecified; Z79.899 Other long term (current) drug therapy
CPT/HCPCS: 58558; 81025; 88305; J7120; J2405

== ENCOUNTER → 2019-04-09 08:51 | Outpatient (CLI) | payer BC, SELFPAY ==
[2019-02-26 13:41] VITALS: BMI 29.7
[2019-04-09 10:33] LABS: Hematocrit 41.3 % (37-47); Hemoglobin 13.7 g/dL (12.0-15.0); Mean Corp Hgb Conc 33.2 g/dL (32-36); Mean Corpuscular Hgb 30.2 pg (27.0-32.0); Mean Platelet Vol. 9.6 fl (6.2-12.0); Platelet Count 271 K/mm3 (150-450); RBC Distribution Width CV 12.5 % (11.6-14.6); RBC Distribution Width SD 41.1 fl (35.1-43.9); Red Blood Count 4.54 M/mm3 (4.2-5.4); White Blood Count 6.8 K/mm3 (4.4-11.0)
[2019-04-09 10:56] LABS: AST(SGOT) 9 U/L (15-37); Alanine Aminotransfer ALT/SGPT 30 U/L (13-56); Albumin, Serum 3.7 g/dL (3.2-5.0); Alkaline Phosphatase 62 U/L (45-117); Anion Gap 4 (5-15); BUN 12 mg/dL (7-18); BUN/Creat Ratio 12.4 RATIO (10-20); Calcium,Total 9.4 mg/dL (8.5-10.1); Chloride 108 mmol/L (98-107); Creatinine, Serum 0.96 mg/dL (0.55-1.02); EST Glomerular Filtration Rate 69 mL/min (>60); Est Glom Filt Rate - Afr Amer 84 mL/min (>60); Globulin 3.7 g/dL (2.2-4.2); Glucose 86 mg/dL (74-106); Lipase 192 U/L (73-393); Protein, Total 7.4 g/dL (6.4-8.2); Sodium Level 141 mmol/L (136-145)
== END ==
DX: R10.13 Epigastric pain (principal)
CPT/HCPCS: 36415; 80053; 83690; 85027

== ENCOUNTER 2019-12-07 09:00 | Outpatient (RCR) | payer SELFPAY ==
[2019-02-26 13:41] VITALS: BMI 29.7
[2019-11-29 14:23] VITALS: BMI 29.7
--- NOTE | 2019-12-12 07:17 | HP.PT.NRP ---
GOLDEN SAMPSON was seen in my office for initial evaluation on . The following Plan of Care was established for this patient: This patient was last seen in our office . Pertinent comments regarding their Physical therapy will appear below: Discharge- DN At this point I will be discontinuing this patient from physical therapy. I would be happy to see this patient again in the future if found appropriate by the physician. Thank you! ARUNA LobatoT
== END 2019-12-07 19:00 | disposition home or self-care (01) ==
LOC: PT 09:00
DX: R69 Illness, unspecified (principal)

== ENCOUNTER 2020-01-23 06:55 | Outpatient (RCR) | payer SELFPAY ==
[2019-11-29 14:23] VITALS: BMI 29.7
--- NOTE | 2020-02-28 10:47 | HP.PT.NRP ---
GOLDEN SAMPSON was seen in my office for initial evaluation on . The following Plan of Care was established for this patient: This patient was last seen in our office . Pertinent comments regarding their Physical therapy will appear below: Self pay dry needle- d/c At this point I will be discontinuing this patient from physical therapy. I would be happy to see this patient again in the future if found appropriate by the physician. Thank you! ARUNA LobatoT
== END 2020-01-23 19:00 | disposition home or self-care (01) ==
LOC: PT 06:55
DX: Z00.00 Encounter for general adult medical examination without abnormal findings (principal)

== ENCOUNTER 2020-02-27 16:23 | Outpatient (RCR) | payer OTHER, SELFPAY ==
--- NOTE | 2020-02-28 07:40 | HP.PTEVAL_ITS ---
Patient's Visit Information GOLDEN SAMPSON is a 39 year old F referred to Physical Therapy by Dr. Mercedes Arreola MD with a diagnosis of Right Shoulder Pain. Date of Evaluation: 02/27/20 Physical Therapist: Cheri Castro DPT - Visit Plan Frequency: 2x /Week Duration: 4 Weeks Plan: Foucus on scapular s/s- elevated 1st rib - Subjective Has been doing dry needling for shoulder pain for years- started clicking in the right shoulder- went to pain [facility]- he thinks her shoulder is a RTC. Went to PCP who sent her to PT. Feels like its under the clav and its under the AC Joint. Not painful just awkward and wants to know why its clicking. Clicking anytime she does a forward motion or throwing a ball ovehead. Tingling and Cold 3/4 no painful. Best: 0/10 most of the time. Right hand domiante. 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 Sleep: not disturbed. No images PMhx:congenital adrenal hyperplasia, osteoporosis Meds: prednisone, levothyroxin, wellbutrin, fosomax. - Objective Posture: FH, RS- can correct but is unable to maintain. Gait: no deviation noted- good arm swing and trunk rotation. ROM: WNL in all ranges. Palpation: tender along upper trap, levator, AC joint- elevated first rib. Strength: Scap: fair minus- winging of the scapula bilaterally, Elbow/Wrist/hand: WNL, Shoulder: Flexion/Abd: 4/5, IR/ER: 4/5 Extn: 4+/5. Special Test: Empty Can: positive, Impingment: positive - Goals Goal 1:: Patient will be I with HEP and progression Goal Time Frame: 4-6 Weeks Goal 2:: Patient will maintain proper posture t/o tx session Goal Time Frame: 4-6 Weeks Goal 3:: Patient will report no clicking Goal Time Frame: 4-6 Weeks - Rehabilitation Potential Physical Therapy Diagnosis: Patient presents with hypomobility- she has decreased scapular strength/stabilization and elevated first rib leading to increased pain with ADL's. Rehabilitation Potential: Fair - Anticipated Interventions Patient/Client Instruction: Educate patient on: Benefits of Fitness Program Therapeutic Exercise to Include: Strength training, Endurance training, Body mechanics, Postural training, Flexibilty training, Neuromotor development, Passive ROM, Active ROM, Dynamic Lumbar Stabilization, Scapular Strength/Stabilization For the Purpose of:: To improve muscle performance and motor function Thank you for the opportunity to evaluate your patient. For Medicare and Medicare HMO plans, please review the plan of care and approve it. It will need to be FAXED BACK to us at [phone] for Medicare purposes. For Medicare only, by signing this I certify the plan of care. Please let me know if there are questions or concerns regarding this plan of care. Physician Signature: Date:
--- NOTE | 2020-03-12 07:18 | HP.PTDCSUM ---
It has been my pleasure to treat GOLDEN SAMPSON referred by Dr. Mercedes Arreola MD, with the diagnosis of Right Shoulder Pain for a total of 1 visit(s). Discharge Date: Please see the following information for a summary of their discharge status. % Improvement: 0 Goal 1:: Patient will be I with HEP and progression Goal 2:: Patient will maintain proper posture t/o tx session Goal 3:: Patient will report no clicking Plan: Foucus on scapular s/s- elevated 1st rib If there are questions or concerns regarding this patient's physical therapy, please feel free to call me at [phone]. Thank you for the referral of this patient. Sincerely, ARUNA LobatoT
== END 2020-02-27 19:00 | disposition home or self-care (01) ==
LOC: PT 16:23
PROVIDERS: PCP Family Medicine; Referring Provider Family Medicine; Visit Provider Family Medicine
DX: M25.511 Pain in right shoulder (principal)
CPT/HCPCS: 97161

== ENCOUNTER 2020-03-31 13:50 | Outpatient (RCR) | payer OTHER, SELFPAY | END 2020-03-31 23:59 | LOC: IMMUN 13:50 | PROVIDERS: PCP Family Medicine; Visit Provider Family Medicine | DX: Z23 Encounter for immunization (principal) | CPT/HCPCS: 0011A; 0012A; 91301 ==

== ENCOUNTER 2020-09-29 12:17 | Outpatient (RCR) | payer OTHER, SELFPAY ==
[2020-08-12 14:39] VITALS: BMI 29.7
== END 2020-09-29 19:00 | disposition home or self-care (01) ==
LOC: PT 12:17
PROVIDERS: PCP Family Medicine
DX: M25.511 Pain in right shoulder (principal)

== ENCOUNTER 2021-02-03 09:52 | Outpatient (RCR) | payer OTHER, SELFPAY ==
[2020-08-12 14:39] VITALS: BMI 29.7
--- NOTE | 2021-02-03 10:23 | HP.PT.NRP ---
GOLDEN SAMPSON was seen in my office for initial evaluation on . The following Plan of Care was established for this patient: This patient was last seen in our office . Pertinent comments regarding their Physical therapy will appear below: At this point I will be discontinuing this patient from physical therapy. I would be happy to see this patient again in the future if found appropriate by the physician. Thank you! ARUNA LobatoT
== END 2021-02-03 12:48 | disposition home or self-care (01) ==
LOC: PT 09:52
PROVIDERS: PCP Family Medicine
DX: M25.511 Pain in right shoulder (principal)

== ENCOUNTER → 2021-02-27 07:33 | Outpatient (CLI) | payer OTHER, SELFPAY ==
--- NOTE | 2021-02-27 07:36 | US_ITS ---
STUDY: ABDOMINAL ULTRASOUND - RIGHT UPPER QUADRANT REASON FOR VISIT: Female, 40 years old PAIN AFTER EATING TECHNIQUE: Ultrasound evaluation of the right upper quadrant was performed with real-time and static byrne-scale imaging. TECHNICAL QUALITY: Adequate. COMPARISON: None. FINDINGS: Liver: The liver measures 12 cm. There is normal echogenicity of the liver. The bile ducts are within normal limits. There is hepatic color flow. The direction of portal flow is hepatopetal. There is no demonstrated mass lesion. Gallbladder: Normal distended gallbladder. The gallbladder wall is mildly thickened and measures 3.5 mm. There is a negative sonographic Cisneros''s sign. There is no pericholecystic fluid. There is a solitary echogenic gallstone within the gallbladder. This measures 1.8 cm x 1.5 cm x 1 cm. Common Bile Duct (C.B.D.): The common bile duct measures 3.8 mm. Pancreas: Normal size of the head, body and tail of the pancreas. There is normal echogenicity of the pancreas. There is no demonstrated pancreatic mass or cyst. Right Kidney: The patient is status post right nephrectomy. US/Abdomen Limited IMPRESSION: Solitary gallstone. Mild degree of gallbladder wall thickening. Electronically Signed: Kevin Little MD at 9:47 EST , Service support ,
== END ==
PROVIDERS: PCP Family Medicine; Referring Provider Family Medicine; Visit Provider Family Medicine
DX: R10.11 Right upper quadrant pain (principal)
CPT/HCPCS: 76705

== ENCOUNTER 2021-03-23 10:24 | Outpatient (CLI) | payer OTHER, SELFPAY ==
[2021-03-23 11:35] LABS: T4 Free Direct 2.16 ng/dL (0.76-1.46); Thyroid Stim Hormone (TSH) 1.43 uIU/mL (0.358-3.74)
== END 2021-03-23 23:59 | disposition home or self-care (01) ==
LOC: WOBLAB 10:26
PROVIDERS: PCP Family Medicine; Visit Provider Internal Medicine Endocrinology, Diabetes & Metabolism
DX: E03.9 Hypothyroidism, unspecified (principal)
CPT/HCPCS: 36415; 84439; 84443

== ENCOUNTER 2021-04-01 12:00 | Outpatient (CLI) | payer OTHER, SELFPAY ==
--- NOTE | 2021-04-01 12:34 | NEURO ---
NCS and/or EMG Patient Report Ordering Doctor: Gilmar Naidu DATE OF SERVICE: 04/01/21 Indication: Right upper extremity weakness and intermittent sensory disturbances that radiate down to the forearm. Evaluate for cervical radiculopathy. Findings: Nerve conduction studies were performed in the right upper extremity. The right median motor study recording the abductor pollicis brevis showed a normal amplitude, normal distal latency and normal conduction velocity. The right ulnar motor study recording the abductor digiti minimi showed a normal amplitude, normal distal latency and normal conduction velocity. No conduction block or focal slowing was present across the elbow. The right median sensory response recording digit two showed a normal amplitude, latency and conduction velocity. The right ulnar sensory response recording digit five showed a normal amplitude, latency and conduction velocity. The right radial sensory response recording over the extensor snuff box showed a normal amplitude, latency and conduction velocity. Needle EMG of the right upper extremity and cervical paraspinal muscles was normal. No denervation was seen in any muscle. All motor unit morphology, activation and recruitment patterns were normal. Impression: This is a normal study. There is no electrophysiologic evidence of cervical radiculopathy in either the right upper extremity. In addition, there was no electrophysiologic evidence of median or ulnar entrapment neuropathy in the right upper extremity. Please note: the electrodiagnosis of radiculopathy is made on the basis of excluding peripheral nerve lesions on nerve conduction studies and the needle EMG demonstrating denervation and/or reinnervation in the distribution of one or more nerve roots (i.e., acute and/or chronic axonal loss). Thus, electrodiagnostic studies are insensitive in detecting radiculopathy in the absence of axonal loss (e.g., in the setting of compression resulting in intermittent ischemia or mechanical deformation; or demyelination without axonal loss). Thus, clinical correlation is required in the interpretation of this negative electrodiagnostic study for radiculopathy. Jamie Carmichael D.O. Multi Select Codes Neurology Neurology Interp Codes: 11298-18 Musc test done w/n test comp (interp) and 31246-87 Nrv cndj test 7-8 studies (interp)
== END 2021-04-01 23:59 | disposition short-term general hospital (02) ==
LOC: PSN 12:02
PROVIDERS: PCP Family Medicine; Referring Provider Orthopaedic Surgery; Visit Provider Orthopaedic Surgery
DX: R20.2 Paresthesia of skin (principal)
CPT/HCPCS: 95886; 95910

== ENCOUNTER 2021-06-03 13:18 | Emergency (ER) | payer OTHER, SELFPAY ==
[2021-06-03 13:19] VITALS: BP 125/97; PULSE 117; RESP 22; TEMP 37; O2SAT 100; BMI 27.7
[2021-06-03 13:40] VITALS: O2SAT 100
--- NOTE | 2021-06-03 13:53 | EKG12_ITS ---
Test Reason : Blood Pressure : / mmHG Vent. Rate : 079 BPM Atrial Rate : 079 BPM P-R Int : 130 ms QRS Dur : 094 ms QT Int : 372 ms P-R-T Axes : 031 014 014 degrees QTc Int : 426 ms Normal sinus rhythm Normal ECG Confirmed by FIONA ROBERTSON, ANITA ([id number]), content editor MARLO CARRASCO ([id number]) on 06/05/2021 7:22:03 AM Referred By: Confirmed By:JOSE JAIMES MD
--- NOTE | 2021-06-03 13:54 | ED.VIS.DYS ---
HPI History of Present Illness Chief Complaint: Shortness of Breath Narrative Narrative: Patient presents with shortness of breath it has been on and off for a few weeks but worse today. 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 She has no fever or chills, she has no pleuritic component. No lower extreme edema or calf pain. No recent travel history. She is denying . She has no abdominal pain. No back pain or tearing sensation. Her dyspnea is worse with exertion. [facility] Medical History Abdominal pain Acid reflux Anxiety Constipation Gallbladder problem Nausea Thyroid disease Home Medications calcium carbonate-vitamin D3 [Caltrate with Vitamin D3] 1 tab PO DAILY@0800 01/03/14 [History Last Taken 07/18/17] levothyroxine 75 mcg PO DAILY 01/03/14 [History Last Taken 09/20/18] prednisone 7.5 mg PO QHS 01/03/14 [History Last Taken 07/18/17] bupropion HCl 150 mg PO BID 07/19/17 [History Last Taken 07/18/17] famotidine [Pepcid] 40 mg PO DAILY PRN 09/14/18 [History Last Taken 09/20/18] multivitamin with minerals 1 ea PO DAILY 09/14/18 [History Last Taken Unknown] acetaminophen-caffeine 500 mg-65 mg tablet 1 tab PO Q12H PRN 03/06/21 [History Last Taken Unknown] alendronate 70 mg tablet 70 mg PO QWEEK 03/06/21 [History Last Taken Unknown] cyclobenzaprine 5 mg tablet 5 mg PO TID PRN 03/06/21 [History Last Taken Unknown] docusate sodium 100 mg capsule 100 mg PO BID PRN 03/06/21 [History Last Taken Unknown] ibuprofen 200 mg capsule 200 mg PO Q6H PRN 03/06/21 [History Last Taken Unknown] plecanatide 3 mg tablet 3 mg PO DAILY PRN 03/06/21 [History Last Taken Unknown] Allergy/AdvReac Type Severity Reaction Status Date / Time No Known Allergies Allergy Verified 06/03/21 13:21 Family History Father Hypertension Surgical History History of endometrial ablation History of hysteroscopy History of right nephrectomy History of salpingectomy Hx of appendectomy Hx of inguinal hernia repair Social History Smoking Status: Never smoker alcohol intake: current details: social substance use type: does not use ROS ROS ED ROS Narrative Past medical history: Reviewed Medications: Reviewed Social history: Noncontributory Review of systems: All systems negative except as indicated General: No fever Eyes: No visual changes ENT: No upper airway congestion, normal voice Neck: No neck pain Cardiovascular: No chest pain Respiratory: Dyspnea as in HPI Gastrointestinal: No abdominal pain, nausea vomiting or diarrhea Genitourinary: No dysuria Musculoskeletal: Denies myalgias no difficulty with ambulation Skin: No rash Neurological: No memory loss, confusion or any focal weakness Psych: No recent behavioral changes Hematologic: No easy bleeding or easy bruising EXAM Physical Exam Narrative Exam Narrative: Physical exam General: Well nourished, Well developed, No Acute Distress, some cushingoid features Head: Normocephalic, Atraumatic Eyes: Conjunctiva not pale ENT: Moist mucous membranes Neck: Supple, Nontender, No lymphadenopathy Cardiovascular: Regular rate, Regular rhythm Respiratory: No distress, CTA bilaterally. No wheezing. Abdomen: Soft, Nontender, Nondistended Back: Nontender, Normal Inspection. Negative for: CVA tenderness Extremities: Nontender, No edema. No calf pain. Skin: Normal color, No rash Neurological: Alert, Normal Strength, Normal Sensation Psychological: Normal affect Const Vital Signs: 06/03/21 13:19 06/03/21 13:40 06/03/21 15:33 Temperature 98.6 F Temperature Source Temporal Pulse Rate 117 H 80 Respiratory Rate 22 H 16 Respiratory Effort Non-Labored Short of Breath Blood Pressure 125/97 H Blood Pressure Mean 106 Pulse Ox 100 99 Oxygen Delivery Method Room Air Room Air Room Air MDM MDM MDM Narrative Medical decision making narrative: Patient has an unremarkable ED work-up. She appears well. She can follow-up with pulmonology. If any changes she is to return. Lab Data Labs: Laboratory Results - last 24 hr 06/03/21 06/03/21 06/03/21 14:05 14:05 14:05 WBC 7.6 RBC 4.71 Hgb 15.0 Hct 42.5 MCV 90.2 MCH 31.8 MCHC 35.3 RDW Std Deviation 38.5 RDW Coeff of Pravin 11.7 Plt Count 296 MPV 8.9 Immature Gran % (Auto) 0.300 Neut % (Auto) 56.4 Lymph % (Auto) 33.4 Arthur % (Auto) 8.0 Eos % (Auto) 1.4 Baso % (Auto) 0.5 Absolute Neuts (auto) 4.3 Absolute Lymphs (auto) 2.54 Nucleated RBC % 0 D-Dimer Quant (PE/DVT) 0.78 H* Sodium 139 Potassium 3.5 Chloride 105 Carbon Dioxide 30.0 Anion Gap 4 L BUN 17 Creatinine 0.99 Estim Creat Clear Calc 58.14 Est GFR (MDRD) Af Amer 80 Est GFR (MDRD) Non-Af 67 BUN/Creatinine Ratio 17.2 Glucose 83 Calcium 9.5 Total Bilirubin 0.40 AST 14 L ALT 26 Alkaline Phosphatase 51 Troponin I High Sens < 3 L Total Protein 7.7 Albumin 3.9 Globulin 3.8 Albumin/Globulin Ratio 1.0 Radiography Diagnostic Testing: Clinical Impression(s) from Imaging Studies Chest CTA 06/03/21 14:31 IMPRESSION: Normal CTA chest examination, without a demonstrated pulmonary embolism or arterial dissection. Electronically Signed: Rodrigo Cabrera MD at 15:37 EDT Reading Location ID and State: [id number] / [employer] , Service support , Chest X-Ray 06/03/21 14:32 IMPRESSION: Normal x-ray examination of the chest. Electronically Signed: Rodrigo Cabrera MD at 15:08 EDT , Discharge Plan Triage Chief Complaint: Shortness of Breath ED Provider: Joshua Hernandez Dx/Rx/DC Orders Clinical Impression: Acute dyspnea Instructions: ED Asthma, Acute (Adult) Prescriptions: No Action alendronate [Fosamax] 70 mg tablet 70 mg PO QWEEK RF: 0 ibuprofen [Motrin IB] 200 mg capsule 200 mg PO Q6H PRN (Reason: Pain) RF: 0 Excedrin Tension Headache 500-65 mg tablet 1 tab PO Q12H PRN (Reason: Migraine Headache) RF: 0 Trulance 3 mg tablet 3 mg PO DAILY PRN (Reason: Constipation) RF: 0 cyclobenzaprine 5 mg tablet 5 mg PO TID PRN (Reason: Muscle Spasm) RF: 0 docusate sodium [Colace] 100 mg capsule 100 mg PO BID PRN (Reason: Constipation) RF: 0 prednisone 10 MG tablet 7.5 mg PO QHS RF: 0 levothyroxine 75 MCG tablet 75 mcg PO DAILY RF: 0 calcium carbonate-vitamin D3 [Caltrate with Vitamin D3] 1 TAB tablet 1 tab PO DAILY@0800 RF: 0 bupropion HCl 150 MG tablet extended release 24 hr 150 mg PO BID RF: 0 multivitamin with minerals 1 EACH tablet 1 ea PO DAILY RF: 0 famotidine [Pepcid] 40 MG tablet 40 mg PO DAILY PRN (Reason: Acid relux) RF: 0 Primary Care Provider: Mercedes Arreola Referrals: Mercedes Arreola MD [Primary Care Provider] - 2 Days Milton Roberson MD [STAFF PHYSICIAN] - 3-5 Days Disposition Disposition: Home, Self Care
[2021-06-03 14:13] LABS: Absolute Lymphocyte Count 2.54 X10^3/uL (0.83-4.51); Absolute Neutrophil Count 4.3 X10^3/uL (2.0-7.7); Basophil# 0.04 X10^3/uL; Basophil% 0.5 % (0-1); Eosinophil# 0.11 X10^3/uL; Eosinophils% 1.4 % (0-5); Hematocrit 42.5 % (37-47); Lymphocyte # 2.54 X10^3/ul (0.83-4.51); Lymphocyte % 33.4 % (19-41); Mean Corp Hgb Conc 35.3 g/dL (32-36); Mean Corpuscular Hgb 31.8 pg (27.0-32.0); Mean Corpuscular Volume 90.2 fL (81-99); Mean Platelet Vol. 8.9 fl (6.2-12.0); Monocyte# 0.61 X10^3/uL; NRBC Flagged by Analyzer 0 % (0-5); Neutrophil # 4.28 X10^3/uL (2.7-7.7); Neutrophil % 56.4 % (47-70); Platelet Count 296 K/mm3 (150-450); RBC Distribution Width CV 11.7 % (11.6-14.6); RBC Distribution Width SD 38.5 fl (35.1-43.9); Red Blood Count 4.71 M/mm3 (4.2-5.4); White Blood Count 7.6 K/mm3 (4.4-11.0)
[2021-06-03 14:31] LABS: AST(SGOT) 14 U/L (15-37); Alanine Aminotransfer ALT/SGPT 26 U/L (13-56); Albumin, Serum 3.9 g/dL (3.2-5.0); Alkaline Phosphatase 51 U/L (45-117); Anion Gap 4 (5-15); BUN 17 mg/dL (7-18); BUN/Creat Ratio 17.2 RATIO (10-20); Calcium,Total 9.5 mg/dL (8.5-10.1); Chloride 105 mmol/L (98-107); Creatinine, Serum 0.99 mg/dL (0.55-1.02); D-Dimer Quantitative (DVT/PE) 0.78 FEU/ug/m (0.27-0.49); EST Glomerular Filtration Rate 67 mL/min (>60); Est Glom Filt Rate - Afr Amer 80 mL/min (>60); Estimated Creatinine Clearance 58.14 ml/min; Globulin 3.8 g/dL (2.2-4.2); Glucose 83 mg/dL (74-106); Potassium 3.5 mmol/L (3.5-5.1); Protein, Total 7.7 g/dL (6.4-8.2); Sodium Level 139 mmol/L (136-145); Troponin-I HS < 3 pg/mL (3.0-54.0)
--- NOTE | 2021-06-03 14:31 | CT_ITS ---
STUDY: CTA CHEST REASON FOR EXAM: Female, 40 years old. PE RADIATION DOSAGE (If Supplied By Facility): CTDIvol = ( 9.00 ) mGy, DLP = ( 347.55 ) mGycm TECHNIQUE: The examination was performed with the intravenous administration of IV 100mL Isovue-370. Post-processing of the angiographic images was performed, with multiplanar reformation and 3D reconstruction. Individualized dose optimization techniques were used for this CT. COMPARISON: None. FINDINGS: Normal enhancement of the main pulmonary artery and right and left pulmonary arteries. Normal enhancement of the bilateral peripheral pulmonary arteries. There is no demonstrated pulmonary embolism. Normal thoracic aorta and visualized great vessels. There is no demonstrated aortic dissection. Normal heart and pericardium. Normal mediastinum. Normal hilar regions. Normal visualized trachea and bronchi. The lungs are well expanded. Normal pulmonary parenchyma. Normal pleura. Normal chest wall structures. Normal osseous structures. Normal visualized upper abdomen. CT/CTA Chest W/WO Contrast IMPRESSION: Normal CTA chest examination, without a demonstrated pulmonary embolism or arterial dissection. Electronically Signed: Rodrigo Cabrera MD at 15:37 EDT ,
--- NOTE | 2021-06-03 14:32 | RAD_ITS ---
STUDY: X-RAY CHEST REASON FOR EXAM: Female, 40 years old. sob TECHNIQUE: Single AP portable view of the chest. COMPARISON: None. FINDINGS: The lungs are clear and expanded. There is no demonstrated pleural abnormality. Normal size heart. Normal mediastinum and annita. Normal visualized pulmonary arteries. Normal visualized aortic arch and descending thoracic aorta. Normal visualized thoracic spine. Normal visualized ribs, clavicles, and shoulders. There is no demonstrated abnormality of the visualized soft tissue structures of the upper abdomen. RAD/Chest 1 View (Portable) IMPRESSION: Normal x-ray examination of the chest. Electronically Signed: Rodrigo Cabrera MD at 15:08 EDT ,
[2021-06-03 15:33] VITALS: PULSE 80; RESP 16; O2SAT 99
== END 2021-06-03 15:58 | disposition home or self-care (01) ==
PROVIDERS: Emergency Provider Emergency Medicine; PCP Family Medicine; Visit Provider Emergency Medicine
DX: R06.00 Dyspnea, unspecified (principal); E24.9 Cushing's syndrome, unspecified; K21.9 Gastro-esophageal reflux disease without esophagitis; E07.9 Disorder of thyroid, unspecified; Z79.890 Hormone replacement therapy; Z79.52 Long term (current) use of systemic steroids; Z79.899 Other long term (current) drug therapy
CPT/HCPCS: 71045; 71275; 80053; 84484; 85025; 85379; 93005; 99284; Q9967; A4216

== ENCOUNTER → 2021-08-05 | Outpatient (CLI) | payer OTHER, SELFPAY ==
[2021-08-05 16:57] LABS: Hematocrit 38.2 % (37-47); Hemoglobin 12.9 g/dL (12.0-15.0); Mean Corp Hgb Conc 33.8 g/dL (32-36); Mean Corpuscular Hgb 30.8 pg (27.0-32.0); Mean Corpuscular Volume 91.2 fL (81-99); Mean Platelet Vol. 9.1 fl (6.2-12.0); Platelet Count 264 K/mm3 (150-450); RBC Distribution Width CV 12.1 % (11.6-14.6); RBC Distribution Width SD 40.1 fl (35.1-43.9); Red Blood Count 4.19 M/mm3 (4.2-5.4); White Blood Count 6.6 K/mm3 (4.4-11.0)
[2021-08-05 17:40] LABS: ALB/GLOB Ratio 1.1 RATIO (0.9-2.4); AST(SGOT) 13 U/L (15-37); Alanine Aminotransfer ALT/SGPT 29 U/L (13-56); Albumin, Serum 3.7 g/dL (3.2-5.0); Alkaline Phosphatase 39 U/L (45-117); Anion Gap 5 (5-15); BUN 17 mg/dL (7-18); BUN/Creat Ratio 21.4 RATIO (10-20); Chloride 107 mmol/L (98-107); EST Glomerular Filtration Rate 86 mL/min (>60); Est Glom Filt Rate - Afr Amer 104 mL/min (>60); Globulin 3.3 g/dL (2.2-4.2); Glucose 76 mg/dL (74-106); Potassium 3.6 mmol/L (3.5-5.1); Sodium Level 138 mmol/L (136-145)
== END | disposition home or self-care (01) ==
LOC: WOBLAB 16:18
PROVIDERS: PCP Family Medicine; Visit Provider Obstetrics & Gynecology
DX: R10.2 Pelvic and perineal pain (principal); R10.30 Lower abdominal pain, unspecified; N92.5 Other specified irregular menstruation
CPT/HCPCS: 36415; 80053; 85027

== ENCOUNTER → 2021-08-11 | Outpatient (CLI) | payer OTHER, SELFPAY ==
--- NOTE | 2021-08-11 09:56 | US_ITS ---
STUDY: ULTRASOUND OF THE FEMALE PELVIS - COMPLETE REASON FOR EXAM: Female, 40 years old. pelvic pain - -- hx ablation 3 years ago LMP: Status post endometrial ablation TECHNIQUE: Transabdominal and Transvaginal TECHNICAL QUALITY: Adequate. COMPARISON: None. FINDINGS: The uterus is anteverted and is in a midline position. The uterus measures 8.2 x 4.4 x 3.9 cm. Normal uterine cervix. The endometrium measures 2 mm in thickness, and is hyperechoic. There is no demonstrated endometrial mass. 7 mm hypoechoic mass in the anterior fundus of uterus consistent with a submucosal fibroid. Another 1.5 center hypoechoic mass in the anterior fundus of uterus consistent with a subserosal fibroid. Another 1 cm hypoechoic mass in the lower uterine segment consistent with a subserosal fibroid. I.U.D. - The patient does not have an I.U.D. The right ovary is visualized. The right ovary measures 3.3 x 2.8 x 2.3 cm. There is no right ovarian cyst or ovarian mass. There is no visualized right adnexal mass or complex lesion. There is normal arterial and normal venous vascularity. The left ovary is visualized. The left ovary measures 2.1 x 2.3 x 1.9 cm. There is no left ovarian cyst or ovarian mass. There is no visualized left adnexal mass or complex lesion. There is normal arterial and normal venous vascularity. There is no fluid in the cul-de-sac. The pre void volume of the bladder was ml. The post void volume of the bladder was ml. Polycystic ovary disease: No. US/Transvaginal Non- IMPRESSION: Multiple small fibroids. Electronically Signed: Rodrigo Cabrera MD at 14:03 EDT ,
--- NOTE | 2021-08-11 09:56 | US_ITS ---
STUDY: ULTRASOUND OF THE FEMALE PELVIS - COMPLETE REASON FOR EXAM: Female, 40 years old. pelvic pain - -- hx ablation 3 years ago LMP: Status post endometrial ablation TECHNIQUE: Transabdominal and Transvaginal TECHNICAL QUALITY: Adequate. COMPARISON: None. FINDINGS: The uterus is anteverted and is in a midline position. The uterus measures 8.2 x 4.4 x 3.9 cm. Normal uterine cervix. The endometrium measures 2 mm in thickness, and is hyperechoic. There is no demonstrated endometrial mass. 7 mm hypoechoic mass in the anterior fundus of uterus consistent with a submucosal fibroid. Another 1.5 center hypoechoic mass in the anterior fundus of uterus consistent with a subserosal fibroid. Another 1 cm hypoechoic mass in the lower uterine segment consistent with a subserosal fibroid. I.U.D. - The patient does not have an I.U.D. The right ovary is visualized. The right ovary measures 3.3 x 2.8 x 2.3 cm. There is no right ovarian cyst or ovarian mass. There is no visualized right adnexal mass or complex lesion. There is normal arterial and normal venous vascularity. The left ovary is visualized. The left ovary measures 2.1 x 2.3 x 1.9 cm. There is no left ovarian cyst or ovarian mass. There is no visualized left adnexal mass or complex lesion. There is normal arterial and normal venous vascularity. There is no fluid in the cul-de-sac. The pre void volume of the bladder was ml. The post void volume of the bladder was ml. Polycystic ovary disease: No. US/Pelvic (Non ) IMPRESSION: Multiple small fibroids. Electronically Signed: Rodrigo Cabrera MD at 14:03 EDT ,
== END | disposition home or self-care (01) ==
LOC: US 09:54
PROVIDERS: PCP Family Medicine; Visit Provider Obstetrics & Gynecology
DX: R10.2 Pelvic and perineal pain (principal)
CPT/HCPCS: 76830; 76856

== ENCOUNTER → 2022-10-06 | Outpatient (CLI) | payer OTHER, SELFPAY ==
[2022-10-06 12:57] LABS: Progesterone Level 0.87 ng/mL (See Comment); Vitamin D,25 Hydroxy 50.5 ng/mL
[2022-10-06 13:06] LABS: Hemoglobin A1c 4.9 % (3.8-5.6)
[2022-10-06 13:10] LABS: ALB/GLOB Ratio 1.1 RATIO (0.9-2.4); AST(SGOT) 15 U/L (15-37); Alanine Aminotransfer ALT/SGPT 23 U/L (13-56); Albumin, Serum 3.7 g/dL (3.2-5.0); Alkaline Phosphatase 48 U/L (45-117); Anion Gap 8 (5-15); BUN 17 mg/dL (7-18); BUN/Creat Ratio 18.3 RATIO (10-20); Calcium,Total 8.9 mg/dL (8.5-10.1); Chloride 103 mmol/L (98-107); Cholesterol 208 mg/dL (200); Creatinine, Serum 0.93 mg/dL (0.55-1.02); EST Glomerular Filtration Rate 71 mL/min (>60); Est Glom Filt Rate - Afr Amer 86 mL/min (>60); Globulin 3.4 g/dL (2.2-4.2); Glucose 79 mg/dL (74-106); High Density Lipoprotein 71 mg/dL; Potassium 4.2 mmol/L (3.5-5.1); Protein, Total 7.1 g/dL (6.4-8.2); Sodium Level 134 mmol/L (136-145); T4 Free Direct 3.34 ng/dL (0.76-1.46); Thyroid Stim Hormone (TSH) 1.07 uIU/mL (0.358-3.74); Triglycerides 81 mg/dL; Very Low Density Lipoprotein 16 mg/dL (5-40)
[2022-10-11 12:13] LABS: 17-Hydroxyprogesterone 4182 ng/dL (.)
== END | disposition home or self-care (01) ==
PROVIDERS: PCP Family Medicine; Referring Provider Family Medicine; Visit Provider Family Medicine
DX: E78.5 Hyperlipidemia, unspecified (principal); E03.9 Hypothyroidism, unspecified; E55.9 Vitamin D deficiency, unspecified
CPT/HCPCS: 36415; 80053; 80061; 82306; 83036; 83498; 84144; 84439; 84443

== ENCOUNTER → 2022-10-27 | Outpatient (CLI) | payer OTHER, SELFPAY ==
--- NOTE | 2022-10-27 09:44 | BD_ITS ---
STUDY: DUAL ENERGY X-RAY ABSORPTIOMETRY / DXA REASON FOR EXAM: Female, 41 years old. Z79.52 TECHNIQUE: Bone Mineral Density (BMD) measurements of lumbar spine and bilateral hips were obtained. COMPARISON: Comparison is made with prior study dated August 02, 2017. FINDINGS: Lumbar Spine (L1-L4): g/cm2 (0.879) / T-score (-1.5) / Z-score (-1.3) Findings are suggestive of osteopenia with a low fracture risk. Left Femur Total: g/cm2 (0.742) / T-score (-1.6) / Z-score (-1.5) Left Femoral Neck: g/cm2 (0.600) / T-score (-2.2) / Z-score (-2.0) Right Femur Total: g/cm2 (0.738) / T-score (-1.7) / Z-score (-1.5) Right Femoral Neck: g/cm2 (0.585) / T-score (-2.4) / Z-score (-2.1) The T-Scores on the most recent prior examination were: Lumbar Spine (L1-L4): There has been improvement of bone density since the previous examination. Left Femur Total: which represents an improvement of 8.9%. Right Femur Total: which represents a worsening of 5%. BD/Dexa Bone Density Study IMPRESSION: The patient is considered osteopenic as outlined below according to World [employer] Organization (WHO) criteria with a high fracture risk. There has been improvement of bone density since the previous examination. Reference Information: The T-score is the number of standard deviations above or below the standard which is normal for young adults at their peak bone mineral density. The World Health Organization (WHO) interprets the T-scores as follows: Above -1 Normal bone density Between -1 and -2.5 Osteopenia Equal to / or below -2.5 Osteoporosis As a practical clinical guideline, osteopenia may be graded as follows: Mild -1 through -1.5 Moderate -1.6 through -2.0 Severe -2.1 through -2.4 The Z-score is the number of standard deviations above or below age-matched controls. A Z-score of less than -1.5 would be considered abnormal. References: 1. NIH Osteoporosis and Related Bone Diseases www osteo.org 2. International Society for Clinical Densitometry www iscd.org 3. National Osteoporosis Foundation www nof.org Electronically Signed: Kevin Little MD at 9:09 EDT ,
== END | disposition home or self-care (01) ==
LOC: OPBD 09:39
PROVIDERS: PCP Family Medicine; Referring Provider Internal Medicine Endocrinology, Diabetes & Metabolism; Visit Provider Internal Medicine Endocrinology, Diabetes & Metabolism
DX: Z13.820 Encounter for screening for osteoporosis (principal); Z79.52 Long term (current) use of systemic steroids
CPT/HCPCS: 77080

== ENCOUNTER → 2022-11-16 | Outpatient (CLI) | payer OTHER, SELFPAY ==
--- NOTE | 2022-11-16 11:49 | BI_ITS ---
MAMMOGRAPHY - BILATERAL SCREENING REASON FOR EXAM: Female, 41 years old. Routine annual screening examination. PERTINENT HISTORY: Aunt with breast cancer. TECHNIQUE: Digital bilateral breast ronny (3D mammographic acquisition) in the CC and MLO projections. 2-D mediolateral oblique (MLO) and craniocaudad (CC) views of both breasts were obtained. CAD: Full Field Digital Mammography with Computer Added Detection was performed. COMPARISON: None. Baseline examination. FINDINGS: Breast Composition: The breasts are heterogeneously dense, which may obscure small masses. There are no dominant masses or suspicious calcifications. No other significant abnormalities are identified. BI/SCRN MAMM (CAD)W/RONNY BILAT IMPRESSION: Negative screening mammogram. Yearly followup mammogram recommended. (A) ASSESSMENT CATEGORY: BIRADS Category 1: Negative. A letter regarding these results will be sent to the patient by the facility within 30 days. Approximately 10% of breast cancers are not detected by mammography. A normal mammogram should not delay biopsy of a clinically suspicious abnormality. [id number] Electronically Signed: Kevin Little MD at 9:54 EDT ,
== END | disposition home or self-care (01) ==
LOC: OPBI 11:47
PROVIDERS: PCP Family Medicine; Referring Provider Family Medicine; Visit Provider Family Medicine
DX: Z12.31 Encounter for screening mammogram for malignant neoplasm of breast (principal); Z80.3 Family history of malignant neoplasm of breast
CPT/HCPCS: 77063; 77067

== ENCOUNTER → 2022-12-20 | Outpatient (CLI) | payer OTHER, SELFPAY ==
[2022-12-20 10:03] LABS: Mucous, Urine 0 SEEN /hpf (<or=2+)
[2022-12-20 10:18] LABS: Color, Urine Yellow (Yellow); Glucose, Dipstick Normal (Normal); Ketone-Dipstick 5 mg/dl (Negative); Leukocyte Esterase-Dipstick 500 /ul (Negative); Nitrite-Dipstick Negative (Negative); Occult Blood-Urine 50 /ul (Negative); Protein-Dipstick 15 mg/dl (Negative); Specific Gravity, Urine 1.015 (1.002-1.030); Urine Bilirubin Dipstick Negative (Negative); Urine Clarity Sl. Cloudy (Clear); Urine Urobilinogen Normal (Normal)
[2022-12-20 10:28] LABS: Red Blood Cells-Urine 0-5 SEEN /hpf (0-5); Squamous Epithelial Cells - UA 5-10 SEEN /hpf (5-10); White Blood Cells 25-50 SEEN /hpf (0-5)
[2022-12-20 10:29] LABS: Bacteria 1+ /hpf (None Seen)
== END | disposition home or self-care (01) ==
LOC: LABSPEC 09:52
PROVIDERS: PCP Family Medicine; Referring Provider Physician Assistant; Visit Provider Physician Assistant
DX: R30.0 Dysuria (principal)
CPT/HCPCS: 81001; 87086; 87088; 87186

== ENCOUNTER → 2022-12-27 | Outpatient (CLI) | payer OTHER, SELFPAY ==
[2022-12-27 11:14] LABS: Bacteria 0 SEEN /hpf (None Seen); Mucous, Urine 0 SEEN /hpf (<or=2+); Red Blood Cells-Urine 0 SEEN /hpf (0-5); White Blood Cells 0 SEEN /hpf (0-5)
[2022-12-27 12:05] LABS: Color, Urine Yellow (Yellow); Glucose, Dipstick Normal (Normal); Ketone-Dipstick Negative (Negative); Leukocyte Esterase-Dipstick Negative /ul (Negative); Nitrite-Dipstick Negative (Negative); Occult Blood-Urine Negative /ul (Negative); Protein-Dipstick Negative (Negative); Specific Gravity, Urine 1.015 (1.002-1.030); Urine Bilirubin Dipstick Negative (Negative); Urine Clarity Clear (Clear); Urine Urobilinogen Normal (Normal)
[2022-12-27 12:38] LABS: Squamous Epithelial Cells - UA 5-10 SEEN /hpf (5-10)
== END | disposition home or self-care (01) ==
PROVIDERS: PCP Family Medicine; Visit Provider Physician Assistant
DX: N39.0 Urinary tract infection, site not specified (principal)
CPT/HCPCS: 81001; 87086; 87088

== ENCOUNTER 2023-02-02 20:33 | Emergency (ER) | payer OTHER, SELFPAY ==
[2023-02-02 20:34] VITALS: BP 120/77; PULSE 81; RESP 15; TEMP 36.3; O2SAT 100; BMI 30.6
--- NOTE | 2023-02-02 22:28 | EX.ED.GENINJ ---
HPI History of Present Illness Chief Complaint: Bite Informant: patient Onset/Context/Timing Onset: Today Narrative Narrative: Patient presents with cat bite to the right thumb. She states there was a feral kitten that she was trying to move when the cat scratched and bit her on the right hand and wrist. There is 1 particular bite wound to the medial portion of the right thumb that is tender and swollen. [facility] Medical History Abdominal pain Acid reflux Acute pharyngitis, unspecified Anxiety Constipation Dysuria Gallbladder problem Nausea Thyroid disease URI (upper respiratory infection) Home Medications calcium carbonate 600 mg-vitamin D3 20 mcg (800 unit) tablet (Caltrate with Vitamin D3) 1 tab PO DAILY@0800 SUPPLEMENT 01/03/14 [History Last Taken 07/18/17] levothyroxine 75 mcg tablet 75 mcg PO DAILY THYROID 01/03/14 [History Last Taken 09/20/18] prednisone 10 mg tablet 7.5 mg PO QHS 01/03/14 [History Last Taken 07/18/17] bupropion HCl 150 mg 24 hr tablet, extended release 150 mg PO BID 07/19/17 [History Last Taken 07/18/17] famotidine 40 mg tablet (Pepcid) 40 mg PO DAILY PRN Acid relux 09/14/18 [History Last Taken 09/20/18] multivitamin with minerals 1 ea PO DAILY 09/14/18 [History Last Taken Unknown] acetaminophen-caffeine 500 mg-65 mg tablet (Excedrin Tension Headache) 1 tab PO Q12H PRN Migraine Headache 03/06/21 [History Last Taken Unknown] alendronate 70 mg tablet (Fosamax) 70 mg PO QWEEK 03/06/21 [History Last Taken Unknown] cyclobenzaprine 5 mg tablet 5 mg PO TID PRN Muscle Spasm 03/06/21 [History Last Taken Unknown] docusate sodium 100 mg capsule (Colace) 100 mg PO BID PRN Constipation 03/06/21 [History Last Taken Unknown] ibuprofen 200 mg capsule (Motrin IB) 200 mg PO Q6H PRN Pain 03/06/21 [History Last Taken Unknown] plecanatide 3 mg tablet (Trulance) 3 mg PO DAILY PRN Constipation 03/06/21 [History Last Taken Unknown] fluconazole 200 mg tablet 200 mg PO DAILY #1 TAB 12/20/22 [Rx Last Taken Unknown] amoxicillin 875 mg-potassium clavulanate 125 mg tablet 1 tab PO BID #20 tabs 02/02/23 [Rx Last Taken Unknown] Allergy/AdvReac Type Severity Reaction Status Date / Time No Known Allergies Allergy Verified 02/02/23 20:37 Family History Father Hypertension Surgical History History of endometrial ablation History of hysteroscopy History of right nephrectomy History of salpingectomy Hx of appendectomy Hx of inguinal hernia repair Social History Smoking Status: Never smoker alcohol intake: current details: social substance use type: does not use ROS ROS ED Constitutional Constitutional ED: Denies chills or fever(s) Eyes Eyes: Denies discharge from eye(s) ENT ENT ED: Denies discharge from eye(s), rhinorrhea or sore throat Cardiovascular Cardiovascular: Denies chest pain Respiratory/Chest Respiratory/Chest: Denies cough or dyspnea Gastrointestinal Gastrointestinal: Denies abdominal pain, nausea or vomiting Musculoskeletal Musculoskeletal: Reports extremity pain; Denies back pain Integumentary Reports Abrasions and other; Denies rash Neurologic Neurologic: Denies headache(s) or weakness Psychiatric Psychiatric: Denies anxiety or depression Allergic/Immunologic Allergic/Immunologic ED: Denies lip swelling or urticaria EXAM Physical Exam Const Vital Signs: 02/02/23 20:34 Temperature 97.3 F L Temperature Source Temporal Pulse Rate 81 Respiratory Rate 15 Blood Pressure 120/77 Blood Pressure Mean 91 Pulse Ox 100 Oxygen Delivery Method Room Air Positive well nourished and well developed General Appearance ED: well developed Eyes EOMs intact bilaterally Chest Wall inspection of chest normal and palpation of chest normal Resp normal respiratory effort and clear to auscultation bilaterally Cardio regular rhythm Rate: regular rate GI non-tender Palpation: soft Back/Spine normal to inspection Extremity Extremity Narrative: Multiple scratches and puncture wounds to right hand and wrist area. 1 particular puncture wound just distal to the IP joint of the medial right thumb is tender. Mild thumb edema noted. Decreased range of motion of thumb secondary to swelling. Good cap refill and sensation distally. No tenderness along the flexor or extensor tendon. Neuro oriented x3 Skin Skin Narrative: Right upper extremity changes as noted above. MDM MDM MDM Narrative Medical decision making narrative: IV line established. Labwork obtained to evaluate for leukocytosis, anemia, and electrolyte derangement. Patient given a dose of IV Unasyn. Right hand x-ray obtained to evaluate for any evidence of radiopaque foreign body. Lab Data Attestation: I reviewed the patient's lab results. Labs: Laboratory Results - last 24 hr 02/02/23 22:38 WBC 12.5 H RBC 4.10 L Hgb 12.5 Hct 37.8 MCV 92.2 MCH 30.5 MCHC 33.1 RDW Std Deviation 40.6 RDW Coeff of Pravin 12.0 Plt Count 270 MPV 8.9 Immature Gran % (Auto) 0.300 Neut % (Auto) 80.3 H Lymph % (Auto) 12.9 L [place] % (Auto) 5.6 Eos % (Auto) 0.5 Baso % (Auto) 0.4 Absolute Neuts (auto) 10.0 H Absolute Lymphs (auto) 1.61 Nucleated RBC % 0 ESR 1 Sodium 137 Potassium 4.1 Chloride 107 Carbon Dioxide 27.0 Anion Gap 3 L BUN 26 H Creatinine 1.35 H Estim Creat Clear Calc 41.80 Est GFR (MDRD) Af Amer 56 L Est GFR (MDRD) Non-Af 46 L BUN/Creatinine Ratio 19.3 Glucose 119 H Calcium 8.6 C-React Prot Ext Range < 2.90 Radiography Diagnostic Testing: Clinical Impression(s) from Imaging Studies Hand X-Ray 02/02/23 22:30 IMPRESSION: Normal x-ray examination of the hand. Electronically Signed: Rodrigo Cabrera MD at 22:46 EST , Treatment and Re-Evaluation Narrative: White count reveals slightly elevated white count at 12.5 with 80% neutrophils. Hemoglobin normal at 12.5. Chemistry studies significant for a BUN of 26 and a creatinine 1.35. This was discussed with the patient. She will increase fluids. She states she does just have a single kidney so she watches this closely. Sed rate is normal at 1 and CRP is normal at less than 2.9. Right hand x-ray per my interpretation reveals no acute abnormalities with no evidence of radiopaque foreign body. Radiology interpretation reviewed and agrees. Test results discussed with the patient. She is elevating her hand appropriately. We discussed that oftentimes cat bites are admitted for IV antibiotics, however she has children at home to care for her and her who is currently sick. With her injury just occurring today with quick care I do feel that we can trial oral antibiotics. She understands if this is not improving she needs to return for admission and IV antibiotics. She was advised this would likely involve transfer as a hand surgeon will be needed for follow-up. Discharge Plan Triage Chief Complaint: Bite ED Provider: Kathleen Reno Dx/Rx/DC Orders Clinical Impression: Bite from cat Instructions: ED Cat Bite Prescriptions: New amoxicillin-pot clavulanate 875-125 mg tablet 1 tab PO BID Qty: 20 0RF No Action alendronate [Fosamax] 70 mg tablet 70 mg PO QWEEK ibuprofen [Motrin IB] 200 mg capsule 200 mg PO Q6H PRN (Reason: Pain) Excedrin Tension Headache 500-65 mg tablet 1 tab PO Q12H PRN (Reason: Migraine Headache) Trulance 3 mg tablet 3 mg PO DAILY PRN (Reason: Constipation) cyclobenzaprine 5 mg tablet 5 mg PO TID PRN (Reason: Muscle Spasm) docusate sodium [Colace] 100 mg capsule 100 mg PO BID PRN (Reason: Constipation) fluconazole 200 mg tablet 200 mg PO DAILY Qty: 1 0RF Rx Instructions: to be taken AFTER completing antibiotic, and only if needed as discussed in office today prednisone 10 MG tablet 7.5 mg PO QHS levothyroxine 75 MCG tablet 75 mcg PO DAILY calcium carbonate-vitamin D3 [Caltrate with Vitamin D3] 1 TAB tablet 1 tab PO DAILY@0800 bupropion HCl 150 MG tablet extended release 24 hr 150 mg PO BID Rx Instructions: pepcid multivitamin with minerals 1 EACH tablet 1 ea PO DAILY famotidine [Pepcid] 40 MG tablet 40 mg PO DAILY PRN (Reason: Acid relux) Primary Care Provider: Mercedes Arreola Referrals: Mercedes Arreola MD [Primary Care Provider] - Mynor Erwin MD [Non-Staff] - 3-5 Days if not improving Disposition Disposition: Home, Self Care
--- NOTE | 2023-02-02 22:30 | RAD_ITS ---
STUDY: X-RAY - RIGHT HAND REASON FOR EXAM: Female, 42 years old. bite right thumb TECHNIQUE: 3 view(s) of the hand. COMPARISON: None. FINDINGS: Normal radiocarpal articulation. Normal distal radioulnar joint. Normal visualized carpal bones. Normal carpal articulations Normal carpometacarpal articulation of the thumb. Normal second through fifth carpometacarpal joints. Normal metacarpi. Normal metacarpophalangeal joint of the thumb. Normal interphalangeal joint of the thumb. Normal proximal and distal phalanges of the thumb. Normal metacarpophalangeal joints of the second through fifth fingers. Normal proximal and distal interphalangeal joints of the second through fifth fingers. Normal phalanges of the second through fifth fingers. The soft tissue structures are unremarkable. RAD/Hand Min 3 Views IMPRESSION: Normal x-ray examination of the hand. Electronically Signed: Rodrigo Cabrera MD at 22:46 EST ,
[2023-02-02] MEDS: Ampicillin/Sulbactam 3 GM in 0.9% Normal Saline (100mL MB+) 100 ML IV (22:46)
[2023-02-02 22:47] LABS: Absolute Lymphocyte Count 1.61 X10^3/uL (0.83-4.51); Basophil# 0.05 X10^3/uL; Basophil% 0.4 % (0-1); Eosinophil# 0.06 X10^3/uL; Eosinophils% 0.5 % (0-5); Hematocrit 37.8 % (37-47); Hemoglobin 12.5 g/dL (12.0-15.0); Lymphocyte # 1.61 X10^3/ul (0.83-4.51); Lymphocyte % 12.9 % (19-41); Mean Corp Hgb Conc 33.1 g/dL (32-36); Mean Corpuscular Hgb 30.5 pg (27.0-32.0); Mean Corpuscular Volume 92.2 fL (81-99); Mean Platelet Vol. 8.9 fl (6.2-12.0); Monocyte% 5.6 % (0-10); NRBC Flagged by Analyzer 0 % (0-5); Neutrophil # 9.99 X10^3/uL (2.7-7.7); Neutrophil % 80.3 % (47-70); Platelet Count 270 K/mm3 (150-450); RBC Distribution Width SD 40.6 fl (35.1-43.9); White Blood Count 12.5 K/mm3 (4.4-11.0)
[2023-02-02 23:01] LABS: Anion Gap 3 (5-15); BUN 26 mg/dL (7-18); BUN/Creat Ratio 19.3 RATIO (10-20); CRP < 2.90 mg/L (0.0-3.0); Calcium,Total 8.6 mg/dL (8.5-10.1); Chloride 107 mmol/L (98-107); Creatinine, Serum 1.35 mg/dL (0.55-1.02); EST Glomerular Filtration Rate 46 mL/min (>60); Est Glom Filt Rate - Afr Amer 56 mL/min (>60); Glucose 119 mg/dL (74-106); Potassium 4.1 mmol/L (3.5-5.1); Sodium Level 137 mmol/L (136-145)
[2023-02-02 23:02] LABS: Erythrocyte Sedimentation Rate 1 mm/hr (0-30)
[2023-02-02 23:32] VITALS: BP 132/66; PULSE 75; RESP 12; O2SAT 100
== END 2023-02-02 23:41 | disposition home or self-care (01) ==
PROVIDERS: Emergency Provider Emergency Medicine; PCP Family Medicine; Visit Provider Emergency Medicine
DX: S61.051A Open bite of right thumb without damage to nail, initial encounter (principal); S61.451A Open bite of right hand, initial encounter; S61.551A Open bite of right wrist, initial encounter; W55.01XA Bitten by cat, initial encounter; F41.9 Anxiety disorder, unspecified; K21.9 Gastro-esophageal reflux disease without esophagitis; E07.9 Disorder of thyroid, unspecified; Z90.49 Acquired absence of other specified parts of digestive tract; Z90.5 Acquired absence of kidney; Z79.899 Other long term (current) drug therapy
CPT/HCPCS: 73130; 80048; 85025; 85652; 86140; 96365; 99284; J7050; A4216; J0295

== ENCOUNTER → 2023-03-07 | Outpatient (CLI) | payer OTHER, SELFPAY ==
[2023-03-07 10:52] LABS: Absolute Lymphocyte Count 2.32 X10^3/uL (0.83-4.51); Basophil# 0.03 X10^3/uL; Basophil% 0.4 % (0-1); Eosinophil# 0.05 X10^3/uL; Eosinophils% 0.7 % (0-5); Hematocrit 40.1 % (37-47); Hemoglobin 13.2 g/dL (12.0-15.0); Lymphocyte # 2.32 X10^3/ul (0.83-4.51); Lymphocyte % 33.3 % (19-41); Mean Corp Hgb Conc 32.9 g/dL (32-36); Mean Corpuscular Hgb 30.3 pg (27.0-32.0); Mean Platelet Vol. 10.2 fl (6.2-12.0); Monocyte# 0.52 X10^3/uL; Monocyte% 7.5 % (0-10); NRBC Flagged by Analyzer 0 % (0-5); Neutrophil # 4.03 X10^3/uL (2.7-7.7); Neutrophil % 57.8 % (47-70); Platelet Count 262 K/mm3 (150-450); RBC Distribution Width SD 40.5 fl (35.1-43.9); Red Blood Count 4.36 M/mm3 (4.2-5.4)
[2023-03-07 11:43] LABS: AST(SGOT) 17 U/L (15-37); Alanine Aminotransfer ALT/SGPT 34 U/L (13-56); Albumin, Serum 3.7 g/dL (3.2-5.0); Alkaline Phosphatase 49 U/L (45-117); Anion Gap 7 (5-15); BUN 19 mg/dL (7-18); BUN/Creat Ratio 20.9 RATIO (10-20); Calcium,Total 9.1 mg/dL (8.5-10.1); Chloride 103 mmol/L (98-107); Creatinine, Serum 0.91 mg/dL (0.55-1.02); EST Glomerular Filtration Rate 73 mL/min (>60); Est Glom Filt Rate - Afr Amer 88 mL/min (>60); Globulin 3.7 g/dL (2.2-4.2); Glucose 85 mg/dL (74-106); Potassium 3.6 mmol/L (3.5-5.1); Protein, Total 7.4 g/dL (6.4-8.2); Sodium Level 136 mmol/L (136-145)
[2023-03-10 11:08] LABS: Hepatitis B Core Ab Total Negative (Negative); QNTFERON TB Mitogen Value > 10.00 IU/mL (.); QNTFERON TB Nil Value 2.27 IU/mL (.); QNTFERON TB1+ Ag Value 0.27 IU/mL (.); QNTFERON TB2+ Ag Value 1.31 IU/mL (.); QNTIFERON TB Positive Criteria Negative (Negative)
[2023-03-11 16:09] LABS: 17-Hydroxyprogesterone 3390 ng/dL (.)
== END | disposition home or self-care (01) ==
LOC: MTLAB 09:19
PROVIDERS: PCP Family Medicine; Referring Provider Physician Assistant Medical; Visit Provider Physician Assistant Medical
DX: E25.0 Congenital adrenogenital disorders associated with enzyme deficiency (principal); L40.0 Psoriasis vulgaris; Z79.899 Other long term (current) drug therapy; Z79.620 Long term (current) use of immunosuppressive biologic
CPT/HCPCS: 36415; 80053; 83498; 85025; 86480; 86704

== ENCOUNTER → 2023-05-04 | Outpatient (CLI) | payer OTHER, SELFPAY ==
[2023-05-07 09:08] LABS: HPV APTIMA, High Risk Negative (Negative)
== END | disposition home or self-care (01) ==
PROVIDERS: PCP Family Medicine; Referring Provider Nurse Practitioner Women's Health; Visit Provider Nurse Practitioner Women's Health
DX: Z12.4 Encounter for screening for malignant neoplasm of cervix (principal)
CPT/HCPCS: 87624; 88175; G0145

== ENCOUNTER → 2024-02-15 | Outpatient (CLI) | payer OTHER, SELFPAY ==
--- NOTE | 2024-02-15 12:48 | BI_ITS ---
MAMMOGRAPHY - BILATERAL SCREENING 3-D TOMOSYNTHESIS REASON FOR EXAM: Female, 43 years old. Routine screening PERTINENT HISTORY: Aunt with breast cancer.. TECHNIQUE: 2-D mammograms and 3-D Tomosynthesis of the breast (s) were performed. CAD was performed. COMPARISON: 11/16/2022 FINDINGS: The breast composition is heterogeneously dense that can obscure small breast masses. Scattered benign calcifications are seen. No dense spiculated masses or suspicious microcalcifications are identified. No architectural distortion is identified. There is no skin thickening or retraction. There has been no significant change since the prior study. BI/SCRN MAMM (CAD)W/RONNY BILAT IMPRESSION: No mammographic signs of malignancy. Routine yearly mammograms recommended. ASSESSMENT CATEGORY: BIRADS Category 1: Negative. A letter regarding these results will be sent to the patient by the facility within 30 days. FOLLOW UP RECOMMENDATION: Yearly follow up mammogram recommended. (A) Approximately 10% of breast cancers are not detected by mammography. A normal mammogram should not delay biopsy of a clinically suspicious abnormality. Electronically Signed: Won Aj MD at 13:54 EST ,
== END | disposition home or self-care (01) ==
LOC: OPBI 12:47
PROVIDERS: PCP Family Medicine; Referring Provider Nurse Practitioner Women's Health; Visit Provider Nurse Practitioner Women's Health
DX: Z12.31 Encounter for screening mammogram for malignant neoplasm of breast (principal)
CPT/HCPCS: 77063; 77067

== ENCOUNTER → 2024-07-17 | Outpatient (CLI) | payer OTHER, SELFPAY ==
[2024-07-19 20:08] LABS: QNTFERON TB Mitogen Value > 10.00 IU/mL (.); QNTFERON TB Nil Value 0.02 IU/mL (.); QNTFERON TB1+ Ag Value 0.05 IU/mL (.); QNTFERON TB2+ Ag Value 0.03 IU/mL (.); QNTIFERON TB Positive Criteria Negative (Negative)
== END | disposition home or self-care (01) ==
LOC: MTLAB 10:31
PROVIDERS: PCP Family Medicine; Referring Provider Physician Assistant Medical; Visit Provider Physician Assistant Medical
DX: L40.0 Psoriasis vulgaris (principal)
CPT/HCPCS: 36415; 86480